=== PATIENT | female | born 1935 | race Caucasian/White ===

== ENCOUNTER 2019-02-14 17:08 | Emergency (ER) | payer OTHER ==
[~2019-02-14] VITALS: Ht 152.4 cm; Wt 47.6 kg
[2019-02-14 18:36] LABS: ABSOLUTE NEUTROPHILS 7.7 thou/uL (1.4-8.2); BASOPHILS 0.3 % (0.0-2.0); EOSINOPHILS 0.8 % (0.0-3.0); HEMATOCRIT 45.5 % (37.0-47.0); HEMOGLOBIN 15.1 gm/dL (12.0-15.0); LYMPHOCYTES 20.5 % (24.0-44.0); MCH 29.6 pg (26.0-34.0); MCHC 33.2 g/dL (28.0-37.0); MCV 89.2 fL (80.0-100.0); MONOCYTES 7.1 % (1.0-8.0); POLYS 71.3 % (36.0-66.0); RDW 14.8 % (10.5-14.5); WBC 10.8 thou/uL (4.0-11.0)
[2019-02-14 18:39] LABS: ANION GAP 8 mmol/L (7-16); BUN 12 mg/dL (7-18); CALCIUM 10.3 mg/dL (8.5-10.1); CHLORIDE 99 mmol/L (98-107); CO2 23 mmol/L (21-32); GLUCOSE 108 mg/dL (74-106); SODIUM 130 mmol/L (136-145)
[2019-02-14 18:40] LABS: POTASSIUM 4.1 mmol/L (3.5-5.1)
[2019-02-14 18:50] LABS: ALBUMIN 3.2 g/dL (3.4-5.0); SGOT 25 U/L (15-37); SGPT 15 U/L (30-65); TOTAL BILIRUBIN 0.5 mg/dL (<0.1-1.0); TOTAL PROTEIN 6.2 g/dL (6.4-8.2); TROPONIN-I <0.06 ng/mL (<0.06)
[2019-02-14 19:04] LABS: PLATELET COUNT 264 thou/uL (150-400)
[2019-02-14 21:03] LABS: URINE BILIRUBIN NEGATIVE (Negative); URINE BLOOD NEGATIVE (Negative); URINE CLARITY CLEAR; URINE COLOR YELLOW; URINE GLUCOSE-RANDOM* NEGATIVE (Negative); URINE KETONES NEGATIVE (Negative); URINE LEUKOCYTES-REFLEX NEGATIVE (Negative); URINE NITRITE-REFLEX NEGATIVE (Negative); URINE PROTEIN (DIPSTICK) NEGATIVE (Negative); URINE SPECIFIC GRAVITY 1.015 (1.005-1.035); URINE UROBILINOGEN 0.2 E.U./dl (0.2-1.0)
[2019-02-14] MEDS ORDERED: HYDROCHLOROTH12.5 M1 PO (22:16)
[2019-02-14] MEDS ORDERED: LISINOPRIL10 MG PO (22:16)
[2019-02-14] MEDS ORDERED: LEVOTHYROXINE100 MC1 PO (22:17)
[2019-02-15 03:13] VITALS: BP 158/91
--- NOTE | 2019-02-16 07:46 | EKG ---
[place] [address] [employer] [place] [address] ELECTROCARDIOGRAM REPORT Name: BRODERICK GARCIADRA Room #: DEP HERMES Boykin#: [id number] ������������������ Admission: 02/14/19 ������������������ Attend Phys: Discharge: 02/15/19 ������������������ Date of : 37 Report #: [id number] ����������������������������������������������������������������� [id number] THIS REPORT FOR: //name// [facility] ED Test Date: 2019-02-14 Test Time: 17:22:57 Pat Name: NAIMA GARCIA Department: Room: Gender: F Physician Intensivist: LACI : 1935 Requested By: Bailee Craft Order Number: [id number] MD: Cortes Palacio Measurements Intervals [place] Rate: 74 P: 52 MS: 178 QRS: 36 QRSD: 96 T: 91 QT: 427 QTc: 474 Interpretive Statements Sinus rhythm Poor R wave progression Nonspecific ST segment abnormality No previous ECG available for comparison Electronically Signed On 02-16-2019 7:45:56 CDT by Cortes Palacio [email or web address] ��������������������������������������������� <ELECTRONICALLY SIGNED> ���������������������������������������� By: Cortes Palacio MD, [facility] ��������������������������������������������� 02/16/19 0745 1722 1722 Cortes Palacio MD, FACC /EPI
== END 2019-02-15 03:26 | disposition home or self-care (01) ==
LOC: ER 17:08
PROVIDERS: Physician Assistant
DX: R53.1 Weakness (principal); R19.7 Diarrhea, unspecified; R10.13 Epigastric pain; Z90.49 Acquired absence of other specified parts of digestive tract

== ENCOUNTER 2019-04-30 21:34 | Inpatient (IN) | payer OTHER ==
[~2019-04-30] VITALS: Ht 162.6 cm; Wt 63.5 kg
--- NOTE | ~2019-04-30 | EMS ---
[address] [address] EMS Patient Care Report Name: BRODERICK GARCIADRA Room #: REG HERMES Boykin#: [id number] Admission: 04/30/19 Attend Phys: Discharge: Date of : 36 Report #: [id number] THIS REPORT FOR: //name// Report Transmitted: 04/30/2019 21:20 EMS Care Summary [facility] MED-ACT Incident [id number] @ 04/30/2019 20:41 Incident Location [address] [place] [address] Patient CHAYO GARCIA Female, 84 Years 1935 Patient Address [address] [place] [address] Patient History Other,Hypertension,Anxiety, Patient Allergies No known allergies, Patient Medications Lisinopril, Cyclobenzaprine, Hydrochlorothiazide (Hctz), Alprazolam, Metoprolol, Duloxetine, Chief Complaint "She's not responding to us." Disposition Transported No Lights/[place] Dispatch Reason Unconscious/Fainting Transported To [facility] Narrative CHART-D FORMAT CHIEF COMPLAINT [address] [address] EMS Patient Care Report Name: NAIMA GARCIA Room #: REG Ashutosh#: [id number] Admission: 04/30/19 Attend Phys: Discharge: Date of : 36 Report #: [id number] "She's not responding to us." HISTORY Medic 1154 responded emergent from quarters with Engine 54 and arrived [place] to find the patient, an 84 year old white female, with an altered mental state in the bedroom in the company of her grandson. The patient was not capable of answering any questions pertaining to the history of the present incident or reliably answer pertinent negative questions due to her altered mental state. The patient's family reported to EMS that the patient was last seen acting normally at noon the day before EMS contact (approx. 30 hours), that she recently had the flu (but had not seen the doctor for it), and that in addition to not responding to them her right eye is swollen shut. The patient's son stated, via phone through his grandson, that the patient possibly took too many of her "pain meds." The family stated that other individuals do live in the house with the patient, and that her son saw her earlier in the afternoon before going to work and calling his grandson to come check on the patient. The grandson reported calling 911 after finding his grandmother in her current condition. The past medical history, allergy, and medication information in this report was derived from a verbal history from the family. ASSESSMENT NOTE: Not in chronological order, and in addition to the assessments found elsewhere in this report. INITIAL CONTACT - The patient was appropriately responsive to painful stimuli, was wearing urine and feces soiled pajamas, had cool/clammy/pink skin, unlabored/irregular respirations, a strong/regular radial pulse, and a patent airway. A strong smell of old urine and fecal matter was pervasive throughout the patient's room, and stale urine permeated her clothing and bedding. EYE - The patient's right eye was swollen shut, and her left eye had mild swelling. No recent history of trauma was reported, and the swelling was similar in appearance to a burn blister. EMS noted that the patient had been lying in right lateral recumbent on an air mattress which was not fully inflated, which placed her head as the most dependent part of her body and possibly contributed to the swelling around the eye if the patient had been in the same position for an extended period of time STROKE SCREEN - Considered, but deferred to the receiving facility as the patient was not compliant with stroke screen commands. VITAL SIGNS - All sets were obtained by EMS via monitor and manual assessment. RENDERED TREATMENT NOTE: Not in chronological order, and in addition to the assessments found [facility] [address] [place] [address] EMS Patient Care Report Name: NAIMA GARCIA Room #: REG Sinan.#: [id number] Admission: 04/30/19 Attend Phys: Discharge: Date of : 36 Report #: [id number] elsewhere in this report. PRIOR AID - None noted/reported. CHANGES IN CONDITION - None noted/reported. TRANSPORT Non-emergent with no lights/sirens/opticom/riders. DESTINATION [facility], destination determined by family preference. FIELD IMPRESSION Altered mental state, possible sepsis. Initial Vitals @20:52GCS: 10,NV Suspected: false @21:32P: 69,R: 25,BP: 194/110,GCS: 10,EtCO2: 24,SpO2: 96,Revised Trauma: 11, @21:19P: 72,R: 27,BP: 185/108,GCS: 10,EtCO2: 23,SpO2: 98,Revised Trauma: 11, @20:59P: 78,R: 22,BP: 184/107,GCS: 10,SpO2: 96,Revised Trauma: 11,NV Suspected: false @21:09P: 72,R: 26,BP: 188/108,GCS: 10,EtCO2: 11,SpO2: 97,Revised Trauma: 11,NV Suspected: false @21:29P: 70,R: 26,BP: 189/112,GCS: 10,SpO2: 95,Revised Trauma: 11, @20:46P: 80,R: 14,BP: 175/104,GCS: 10,Temp: 97.2F,Glucose: 135,EtCO2: 18,SpO2: 97,Revised Trauma: 11,NV Suspected: false Assessments @20:47MENTAL:Confused,SKIN:Other,Pale,HEENT:Head/Face: Swelling,Eyes: Left Pupil: 4-mm,Eyes: Right: Other,Neck/Airway: No Abnormalities,LUNG SOUNDS:ABDOMEN:PELVIS//GI:EXTREMITIES:PULSE:NEURO: Impression Altered Mental Status Procedures @20:47ALS AssessmentResponse: UnchangedSucceeded@20:57Saline Lock 10cc (20 ga) Site: Antecubital-LeftResponse: UnchangedSucceeded@20:55StretcherResponse: Unchanged@20:5212-Lead ECGResponse: UnchangedSucceeded@20:47Oxygen FlowRate: 4 Device: CO2 Nasal Cannula Response: UnchangedSucceeded Timeline 20:41,Call Received 20:41,Psap Call [facility] [address] [place] [address] EMS Patient Care Report Name: NAIMA GARCIA Room #: ARMAAN LynchR.#: [id number] Admission: 04/30/19 Attend Phys: Discharge: Date of : 36 Report #: [id number] 20:41,Dispatched 20:42,En Route 20:45,On Scene 20:46,At Patient 20:46,BP: 175/104 M,PULSE: 80,RR: 14 R,SPO2: 97 Ox,ETCO2: 18 ,B,PAIN: ,GCS: 10, 20:47,ALS Assessment,Response: UnchangedSucceeded, 20:47,Oxygen FlowRate: 4 Device: CO2 Nasal Cannula Response: UnchangedSucceeded, 20:52,12-Lead ECG,Response: UnchangedSucceeded, 20:52,BP: / M,PULSE: ,RR: R,SPO2: Ox,ETCO2: ,BG: ,PAIN: ,GCS: 10, 20:55,Stretcher,Response: Unchanged 20:57,Saline Lock 10cc 20 ga Site: Antecubital-Left,Response: UnchangedSucceeded, 20:59,BP: 184/107 M,PULSE: 78,RR: 22 R,SPO2: 96 Ox,ETCO2: ,BG: ,PAIN: ,GCS: 10, 21:06,Depart Scene 21:09,BP: 188/108 M,PULSE: 72,RR: 26 R,SPO2: 97 Ox,ETCO2: 11 ,BG: ,PAIN: ,GCS: 10, 21:19,BP: 185/108 M,PULSE: 72,RR: 27 R,SPO2: 98 Ox,ETCO2: 23 ,BG: ,PAIN: ,GCS: 10, 21:29,BP: 189/112 M,PULSE: 70,RR: 26 R,SPO2: 95 Ox,ETCO2: ,BG: ,PAIN: ,GCS: 10, 21:31,At Destination 21:32,BP: 194/110 M,PULSE: 69,RR: 25 R,SPO2: 96 Ox,ETCO2: 24 ,BG: ,PAIN: ,GCS: 10, 21:41,Call Closed Disclaimer v1.1 Copyright 2019 [employer] This EMS Care Summary contains data elements from the applicable legal record (which may be displayed differently). It is designed to provide pertinent information for the following purposes: continuity of care, clinical quality, and state data reporting. The complete legal record is available to ED staff and administrators of the receiving hospital in [employer] Patient Tracker. All data is provided "as is."
[~2019-04-30 21:34] MED LIST: HYDROCHLOROTH12.5 M1 PO; LEVOTHYROXINE100 MC1 PO; LISINOPRIL10 MG PO
[2019-04-30 21:36] VITALS: BP 205/106
[2019-04-30] MEDS ORDERED: METOPROLOL (21:43)
[2019-04-30] MEDS ORDERED: FLEXERIL (21:44)
[2019-04-30] MEDS ORDERED: ALPRAZOLAM XR3 MG (21:44)
[2019-04-30] MEDS ORDERED: DULOXETINE HCL20 MG PO (21:44)
[2019-04-30] MEDS ORDERED: MICROZIDE12.5 MG (21:45)
[2019-04-30 22:02] LABS: URINE CLARITY CLOUDY; URINE COLOR YELLOW
[2019-04-30 22:03] LABS: URINE SPECIFIC GRAVITY 1.015 (1.005-1.035)
[2019-04-30 22:04] LABS: URINE BILIRUBIN NEGATIVE (Negative); URINE BLOOD 3+ (Negative); URINE GLUCOSE-RANDOM* NEGATIVE (Negative); URINE KETONES NEGATIVE (Negative); URINE NITRITE NEGATIVE (Negative); URINE PROTEIN (DIPSTICK) 3+ (Negative); URINE UROBILINOGEN 0.2 E.U./dl (0.2-1.0)
[2019-04-30 22:05] LABS: URINE LEUKOCYTES 3+ (Negative)
[2019-04-30 22:13] LABS: BACTERIA >30 Many /HPF (None Seen); CASTS None Seen /LPF (None Seen); MUCUS 0-3 Light strn/LPF (None Seen); SQUAMOUS 0-3 Few /LPF (0-3); URINE RBC >20 Many /HPF (0-2); URINE WBC >25 Many /HPF (0-5); WBC CLUMPS Packed (None Seen)
[2019-04-30 22:14] LABS: CRYSTALS None Seen /LPF (None Seen)
[2019-04-30 22:20] LABS: ABSOLUTE NEUTROPHILS 11.4 thou/uL (1.4-8.2); BASOPHILS 0.3 % (0.0-2.0); HEMATOCRIT 48.3 % (37.0-47.0); HEMOGLOBIN 15.4 gm/dL (12.0-15.0); LYMPHOCYTES 11.3 % (24.0-44.0); MCH 30.1 pg (26.0-34.0); MCHC 31.9 g/dL (28.0-37.0); MCV 94.4 fL (80.0-100.0); MONOCYTES 6.8 % (1.0-8.0); PLATELET COUNT 235 thou/uL (150-400); POLYS 81.6 % (36.0-66.0); RBC 5.12 mil/uL (4.20-5.00); RDW 14.3 % (10.5-14.5)
[2019-04-30 22:22] LABS: CALCIUM 7.7 mg/dL (8.5-10.1); CREATININE 1.1 mg/dL (0.6-1.0); POTASSIUM 3.5 mmol/L (3.5-5.1)
[2019-04-30 22:31] LABS: BE(vivo) -5.7 mmol/L (-2 to +3); HCO3 18.1 mmol/L (22.0-26.0); PCO2 31.2 mmHg (35.0-45.0); PO2 93.5 mmHg (80.0-100.0); pH 7.381 (7.360-7.450); sO2 97.1 % (92.0-98.0)
[2019-04-30 22:32] LABS: ALBUMIN 2.3 g/dL (3.4-5.0); TOTAL BILIRUBIN 0.3 mg/dL (<0.1-1.0); TOTAL PROTEIN 4.9 g/dL (6.4-8.2); TROPONIN-I 0.17 ng/mL (<0.06)
[2019-05-01] VITALS (11 sets, daily range): BP systolic 142–207; BP diastolic 66–107
--- NOTE | 2019-05-01 02:45 | NUR ---
Patient was able to take oral Metoprolol with small sip for water without difficulty.
--- NOTE | 2019-05-01 04:57 | NUR ---
Patient more awake, able to reposition self in bed. Oriented to person and speech clearer. Unable to recall incident that brought her to ED. Cannot remember medications. Son to bring in medication for verification.
[2019-05-01 06:05] LABS: URINE BILIRUBIN NEGATIVE (Negative); URINE BLOOD TRACE (Negative); URINE CLARITY CLOUDY; URINE COLOR YELLOW; URINE GLUCOSE-RANDOM* NEGATIVE (Negative); URINE KETONES NEGATIVE (Negative); URINE PROTEIN (DIPSTICK) NEGATIVE (Negative); URINE SPECIFIC GRAVITY 1.025 (1.005-1.035); URINE UROBILINOGEN 0.2 E.U./dl (0.2-1.0)
[2019-05-01 06:20] LABS: URINE LEUKOCYTES-REFLEX 2+ (Negative); URINE NITRITE-REFLEX POSITIVE (Negative)
[2019-05-01 06:31] LABS: BACTERIA-REFLEX >30 Many /HPF (None Seen); CRYSTALS None Seen /LPF (None Seen); HYALINE CASTS 0-3 Few /LPF (None Seen); SQUAMOUS None Seen /LPF (0-3); URINE RBC 0-2 Rare /HPF (0-2); URINE WBC-REFLEX >25 Many /HPF (0-5)
[2019-05-01 09:45] LABS: HEMATOCRIT 45.7 % (37.0-47.0); HEMOGLOBIN 14.9 gm/dL (12.0-15.0); MCH 30.6 pg (26.0-34.0); MCHC 32.7 g/dL (28.0-37.0); MCV 93.5 fL (80.0-100.0); RBC 4.89 mil/uL (4.20-5.00); RDW 14.2 % (10.5-14.5); WBC 11.4 thou/uL (4.0-11.0)
[2019-05-01 10:03] LABS: CALCIUM 9.3 mg/dL (8.5-10.1); CREATININE 1.1 mg/dL (0.6-1.0); POTASSIUM 3.3 mmol/L (3.5-5.1); TROPONIN-I 0.16 ng/mL (<0.06)
--- NOTE | 2019-05-01 10:20 | EKG ---
[address] [place] [address] ELECTROCARDIOGRAM REPORT Name: NAIMA GARCIA Room #: 359-P ADM IN M.R.#: [id number] Admission: 04/30/19 Attend Phys: Ray Perry Discharge: Date of : 36 Report #: [id number] THIS REPORT FOR: //name// [facility] ED Test Date: 2019-04-30 Test Time: 23:05:16 Pat Name: NAIMA GARCIA Department: Room: 359 Gender: F Tool Analyst: BETTY : 1935 Requested By: Johnson Cho Order Number: [id number] MD: Marin Faria Measurements Intervals [place] Rate: 67 P: 42 DE: 174 QRS: 33 QRSD: 94 T: 58 QT: 488 QTc: 516 Interpretive Statements Sinus rhythm Borderline T wave abnormalities Prolonged QT interval Compared to ECG 02/14/2019 17:22:57 T-wave abnormality now present Prolonged QT interval now present Poor R-wave progression no longer present ST (T wave) deviation no longer present Electronically Signed On 05-01-2019 10:20:22 CDT by Marin Faria [email or web address] <ELECTRONICALLY SIGNED> By: Marin Faria MD 05/01/19 1020 2305 Marin Faria MD /EPI
--- NOTE | 2019-05-01 10:20 | EKG ---
[address] [place] [address] ELECTROCARDIOGRAM REPORT Name: NAIMA GARCIA Room #: 359-P ADM IN M.R.#: [id number] Admission: 04/30/19 Attend Phys: Ray Perry Discharge: Date of : 36 Report #: [id number] THIS REPORT FOR: //name// [facility] ED Test Date: 2019-04-30 Test Time: 21:48:22 Pat Name: NAIMA GARCIA Department: Room: 359 Gender: F Managing Director: BOBBI : 1935 Requested By: Johnson Cho Order Number: [id number] MD: Marin Faria Measurements Intervals [place] Rate: 67 P: 50 MI: 161 QRS: 46 QRSD: 92 T: 70 QT: 475 QTc: 502 Interpretive Statements Sinus rhythm Borderline T wave abnormalities Prolonged QT interval Compared to ECG 02/14/2019 17:22:57 T-wave abnormality now present Prolonged QT interval now present Poor R-wave progression no longer present ST (T wave) deviation no longer present Electronically Signed On 05-01-2019 10:20:04 CDT by Marin Faria [email or web address] <ELECTRONICALLY SIGNED> By: Marin Faria MD 05/01/19 1020 2148 2148 Marin Faria MD /EPI
[2019-05-01 10:29] LABS: TSH 1.742 uIU/mL (0.358-3.740)
--- NOTE | 2019-05-01 15:56 | NUR ---
ASSUMED CARE AROUND 191. RECEIVED ALERT AND AWAKE. THROUGHOUT THE DAY, PT'S LOC GOTTEN BETTER. ST EVAL COMPLETED WITH NEW DIET ORDER. HTN AND LOW K+ ADDRESSED TO WITH NEW ORDERS.NO S/S ACUTE DISTRESS NOTED OR REPORTED AT THIS TIME. WILL CONT TO MOMITOR FOR ANY CHANGES IN CONDITION.
--- NOTE | 2019-05-02 01:52 | NUR ---
PATIENT AOX3 MAKES NEEDS KNOWN. PATIENT CONTINENT THIS SHIFT PERICARE AND BARRIER CREAM APPLIED NEEDED. PATIENT DENIED PAIN OR DISCOMFORT. PATIENT USING A BED COMMODE OR BED KAHN THIS SHIFT. PATIENT VOIDING WELL URINE IS YELLOW IN COLOR NO ODOR. PATIENT IN BED ASLEEP AT THIS TIME BREATHING REGULAR AND UNLABOURED.
[2019-05-02 03:50] VITALS: BP 175/86
[2019-05-02 05:43] LABS: MCH 30.9 pg (26.0-34.0); MCHC 33.3 g/dL (28.0-37.0); MCV 92.7 fL (80.0-100.0); RBC 4.21 mil/uL (4.20-5.00); RDW 14.3 % (10.5-14.5); WBC 8.3 thou/uL (4.0-11.0)
[2019-05-02 06:03] LABS: CALCIUM 8.8 mg/dL (8.5-10.1); CREATININE 0.9 mg/dL (0.6-1.0); TROPONIN-I 0.1 ng/mL (<0.06)
[2019-05-02 07:50] VITALS: BP 172/75
[2019-05-02 10:25] VITALS: BP 158/79
--- NOTE | 2019-05-02 11:01 | NUR ---
Pt is continue to c/o being nausea. Not relief by Zofran. Call placed to Dr. Perry; order receives. Dysurina, unale to void after multiple attempts. Bladder scan obtain and it was> 400 cc per scanner. Notified ; order to place lester to DD and place her on protocol. Will continue to monitor.
[2019-05-02 16:09] VITALS: BP 168/81
--- NOTE | 2019-05-02 19:00 | NUR ---
Pt report she is feeling better this evening. Nausea is comopletely resolved. Still having very poor appitite. Report hand off to ALFRED Rn.
[2019-05-02 20:34] VITALS: BP 155/82
[2019-05-03 04:15] VITALS: BP 162/85
[2019-05-03 05:41] LABS: HEMATOCRIT 39.2 % (37.0-47.0); HEMOGLOBIN 12.9 gm/dL (12.0-15.0); MCH 30.6 pg (26.0-34.0); MCV 92.7 fL (80.0-100.0); RBC 4.23 mil/uL (4.20-5.00); RDW 14.7 % (10.5-14.5); WBC 9.1 thou/uL (4.0-11.0)
[2019-05-03 05:46] LABS: CALCIUM 8.9 mg/dL (8.5-10.1); CREATININE 0.7 mg/dL (0.6-1.0); POTASSIUM 3.2 mmol/L (3.5-5.1)
[2019-05-03 05:48] VITALS: BP 161/84
--- NOTE | 2019-05-03 05:49 | NUR ---
HEART RATE IN THE 150'S. HAVING A HEADACHE AND HER FACE FLUSHED. SHE IS AWARE OF THE PALPATIONS.
[2019-05-03 07:24] VITALS: BP 174/91
--- NOTE | 2019-05-03 07:54 | HC ---
[facility] [place] [address] CONSULTATION Name: NAIMA GARCIA Room #: 359-P [facility] IN M.R.#: [id number] Admission: 04/30/19 Attend Phys: Ray Perry Discharge: Date of : 36 Report #: [id number] THIS REPORT FOR: //name// CC: CONSTANTINO physician/PCP Ray Perry DATE OF SERVICE: 05/01/2019 CARDIOLOGY CONSULTATOIN INDICATION: Chest pain. HISTORY OF PRESENT ILLNESS: This is an 84-year-old female with a history of hypertension, anxiety, hypothyroidism, presenting with mental status change. The patient lives with her son, who works in the evening. The patient initially presented with confusion, but is more alert today. The patient is able to answer questions, knows she is in the hospital. The patient states that she ambulates with either a cane or walker at home, secondary to gait instability. For the past week, she reports having substernal chest discomfort, occurring at rest and with exertion. It is not alleviated with palpation over the area or deep inspiration. It comes and goes, not exacerbated with walking. She cannot recall the events of yesterday. She does report that her eating habits are very poor, has no appetite. There is no history of fever or chills. ALLERGIES: PENICILLIN. MEDICATIONS: Include lisinopril 10 mg, hydrochlorothiazide 12.5, Synthroid, duloxetine, alprazolam and Flexeril. SOCIAL HISTORY: Denies tobacco use. FAMILY HISTORY: Negative for premature CAD. REVIEW OF SYSTEMS: A full 10-point review of systems performed. Only the pertinent positives and negatives are described in the HPI. PHYSICAL EXAMINATION: VITAL SIGNS: Initial blood pressure was 200/110, heart rate of 70 beats per minute. GENERAL APPEARANCE: An elderly appearing female in no acute distress. HEENT: Normocephalic, atraumatic. Oral mucosa is moist. NECK: Supple. LUNGS: Clear to auscultation. CARDIAC: Regular rate and rhythm, S1, S2 positive. ABDOMEN: Soft, nontender. EXTREMITIES: No cyanosis, no edema. [facility] [address] [place] [address] CONSULTATION Name: NAIMA GARCIA Room #: 359-P ADM IN M.R.#: [id number] Admission: 04/30/19 Attend Phys: Ray Perry Discharge: Date of : 36 Report #: [id number] NEUROLOGIC: Awake and oriented to hospital only. ECG reveals sinus rhythm, nonspecific ST segment abnormalities and prolonged QT interval. LABORATORY VALUES: Troponin peak is 0.17, calcium is 7.7, creatinine is 1.1. White count is 14.0, hemoglobin 15.4. Chest x-ray reveals right basilar infiltrate. ASSESSMENT AND PLAN: 1. Chest pain with positive troponin, the EKG does not show any acute ST segment changes. The etiology for the minimal troponin elevation is unclear. Once her mental status is back to baseline, we would proceed with noninvasive stress testing and echocardiogram. Start aspirin therapy. 2. Hypertensive urgency, resume lisinopril. May need additional medications. Hold on the diuretic for now. 3. Pneumonia, continue antibiotics, check cultures. Consider speech and swallow evaluation to rule out aspiration. 4. Urinary tract infection, on antibiotics. 5. Mental status change/encephalopathy, etiology unclear. She appears more lucid today, able to respond to questions. <ELECTRONICALLY SIGNED> By: Marin Faria MD 05/03/19 0754 1629 0917 Marin Faria MD /nt
--- NOTE | 2019-05-03 10:12 | NUR ---
Pt in CV holding 11 waiting to do the rest of her nuclear med study. She is calling out c/o extreme back pain. she is agitated. Checked eMAR. She has tylenol ordered q4h. last dose 0557. Given 650 mg acetaminophen PO or back pain of 04/29.
--- NOTE | 2019-05-03 10:18 | NUR ---
PT C/O INCREASED CHRONIC BACK PAIN. PT POSITIONED TO BE COMFORTABLE POSSIBLE, MEDS GIVEN BY SECONDARY RN. PRIMARY RN AWARE OF PAIN COMPLAINTS AND IS CONTACTING MD FOR ADDITIONAL PAIN MANAGMENT.
[2019-05-03] MEDS ORDERED: OXYCODONE HCL15 MG PO (10:25)
--- NOTE | 2019-05-03 10:33 | NUR ---
50 MCG OF FENTAYL GIVEN PER MAR, UNABLE TO SCAN.
--- NOTE | 2019-05-03 10:48 | NUR ---
PT GIVEN 15 MG OXYCODONE IR, PER SEP. UNABLE TO SCAN. 04/29 BACK PAIN.
[2019-05-03 12:23] VITALS: BP 144/83
--- NOTE | 2019-05-03 12:29 | NUR ---
INITIAL ASSESSMENT: Received consult to assess pt's living situation. DANIEL reviewed chart and spoke with nursing and attending physician. Pt was admitted from home due to AMS/UTI/pneumonia. Pt had stress test earlier today. DANIEL met with pt at bedside. Introduced role of SW. Pt is alert/orientated x 4. Pt reports she lives at home with her son. Prior to admission, pt was independent with ADLs. There are a couple steps to enter and 5 steps inside up to her bedroom. Pt has a walker and states she is able to navigate the steps inside. There is a hand rail. No hx of HH services or SNF/Rehab placement. Pt is agreeable with having HH services. Pt does not want to go to post-acute care. Pt states she has no concerns returning home. Pt's PCP is Dr. Brooke Louise in [place]. DANIEL discussed options for HH providers. No preference voiced. DANIEL contacted [facility] lia[facility], who will check pt's insurance. DANIEL is following to assist as needed with discharge planning.
--- NOTE | 2019-05-03 13:03 | NUR ---
Patient to likely dc in 1 to 2 days. DP sent hh referral to [facility] dp will follow up to make sure they received referral.
--- NOTE | 2019-05-03 14:00 | 2DMMODE ---
[facility] [address] [place] [address] 2 D/M-MODE ECHOCARDIOGRAM Name: BRODERICK GARCIADRA Room #: 359-P ADM IN M.R.#: [id number] Admission: 04/30/19 Attend Phys: Ray Starks Discharge: Date of : 36 Report #: [id number] THIS REPORT FOR: //name// APPROVED REPORT Study performed: 05/03/2019 13:18:14 EXAM: Comprehensive 2D, Doppler, and color-flow Echocardiogram Patient Location: Bedside Room #: 359 Status: routine BSA: 1.68 HR: 94 bpm BP: 174/91 mmHg Rhythm: NSR Other Information Study Quality: Good Indications Chest Pain HTN 2D Dimensions RVDd: 31.68 mm IVSd: 12.00 (7-11mm) LVOT Diam: 20.06 (18-24mm) LVDd: 40.39 mm PWd: 12.00 (7-11mm) Ascending Ao: 34.88 (22-36mm) LVDs: 23.23 (25-40mm) Aortic Root: 36.40 mm Volumes Left Atrial Volume (Systole) Single Plane 4CH: 54.34 mL Single Plane 2CH: 49.00 mL LA ESV Index: 34.00 mL/m2 Aortic Valve AoV Peak Orlando.: 1.93 m/s AO Peak Gr.: 14.92 mmHg LVOT Max P.90 mmHg LVOT Max V: 1.57 m/s THANH Vmax: 2.57 cm2 Mitral Valve E/A Ratio: 0.7 MV Decel. Time: 232.10 ms [facility] [address] [place] [address] 2 D/M-MODE ECHOCARDIOGRAM Name: NAIMA GARCIA Room #: 359-P [facility] IN [facility]#: [id number] Admission: 04/30/19 Attend Phys: Ray Gomes Sep Discharge: Date of : 36 Report #: [id number] MV E Max Orlando.: 0.87 m/s MV A Orlando.: 1.27 m/s MV PHT: 67.31 ms IVRT: 72.66 ms Pulmonary Valve PV Peak Orlando.: 1.16 m/s PV Peak Gr.: 5.41 mmHg Pulmonary Vein P Vein S: 0.96 m/s P Vein D: 0.37 m/s P Vein S/D Ratio: 2.59 Tricuspid Valve TR Peak Orlando.: 2.82 m/s RAP Estimate: 5.00 mmHg TR Peak Gr.: 32.00 mmHg PA Pressure: 37.00 mmHg Left Ventricle The left ventricle is normal size. There is normal LV segmental wall motion. Mild concentric left ventricular hypertrophy. Left ventricular systolic function is normal. LVEF is 65-70%. Mild diastolic dysfunction is present (impaired relaxation pattern). Right Ventricle The right ventricle is normal size. The right ventricular systolic function is normal. Atria Left atrium is mildly dilated. The right atrium size is normal. Aortic Valve The aortic valve is normal in structure. No aortic regurgitation is present. There is no aortic valvular stenosis. Mitral Valve The mitral valve is normal in structure. Mild to moderate mitral regurgitation. Tricuspid Valve The tricuspid valve is normal in structure. Trace tricuspid regurgitation. Estimated PAP is 35-40mmHg. Pulmonic Valve [facility] [address] [place] [address] 2 D/M-MODE ECHOCARDIOGRAM Name: NAIMA GARCIA Room #: 359-[facility] IN .R.#: [id number] Admission: 04/30/19 Attend Phys: Ray Starks Discharge: Date of : 36 Report #: [id number] The pulmonary valve is normal in structure. Trace pulmonic regurgitation. Great Vessels The aortic root is normal in size. The ascending aorta is normal in size. IVC is normal in size and collapses >50% with inspiration. Pericardium There is no pericardial effusion. <Conclusion> The left ventricle is normal size. Mild concentric left ventricular hypertrophy. Left ventricular systolic function is normal. Mild diastolic dysfunction is present (impaired relaxation pattern). The right ventricle is normal size. Left atrium is mildly dilated. The aortic valve is normal in structure. Mild to moderate mitral regurgitation. Trace tricuspid regurgitation. Estimated PAP is 35-40mmHg. <ELECTRONICALLY SIGNED> By: Marin Faria MD 05/03/191399 99 99 Marin Faria MD /INF
--- NOTE | 2019-05-03 15:08 | NUR ---
folate and vitamin D deficiency, needs supplementation
[2019-05-03 15:52] VITALS: BP 156/86
[2019-05-03 19:39] VITALS: BP 134/75
[2019-05-04 05:00] VITALS: BP 155/81
[2019-05-04 05:39] LABS: HEMATOCRIT 33.1 % (37.0-47.0); MCH 30.8 pg (26.0-34.0); MCHC 32.9 g/dL (28.0-37.0); MCV 93.8 fL (80.0-100.0); RBC 3.53 mil/uL (4.20-5.00); RDW 14.2 % (10.5-14.5); WBC 6.9 thou/uL (4.0-11.0)
[2019-05-04 05:41] LABS: HEMOGLOBIN 10.9 gm/dL (12.0-15.0)
[2019-05-04 05:51] LABS: CALCIUM 8.9 mg/dL (8.5-10.1); CREATININE 0.8 mg/dL (0.6-1.0); POTASSIUM 3.2 mmol/L (3.5-5.1)
--- NOTE | 2019-05-04 05:54 | NUR ---
PT MOVES BACK AND FORTH FROM BED TO CHAIR DUE TO PAIN ASSOCIATED TO PT'S BACK. PT UP X1 WITH GAITBELT AND WALKER. FOLLOWING POC WITH IVF AND ORAL MEDICATIONS. PT HR WILL GET UP TO 150 BPM. HAD PT VAGAL AND HR DROPPED BACK DOWN INTO THE 90'S. WILL CONTINUE TO MONITOR AND ASSESS. PT HAS DIMAS IN THAT IS HAVING GOOD OUTPUT. PT ALSO STATED DURING ASSESSMENT THAT SHE WAS ALLERGIC TO PENICILLIN. DOCUMENTED IN MAR THOSE FINDINGS. PT HAS COMPLAINTS OF BACK PAIN, TYLENOL AND PRN OXY GIVEN WITH GOOD RESULTS. HOURLY ROUNDING.
[2019-05-04 07:41] VITALS: BP 132/78
--- NOTE | 2019-05-04 10:31 | NUR ---
PATIENT'S HEART RHYTHM AND RATE CHANGED THIS MORNING. PHYSICIAN WAS ON FLOOR AND MADE AWARE OF AFIB. PHYSICIAN ORDERED STAT EKG AND NURSE PAGED WARP DRESSER ABOUT FURTHER TREATMENT.
[2019-05-04 11:48] VITALS: BP 118/81
--- NOTE | 2019-05-04 13:22 | NUR ---
PATIENT WAS IN GOOD SPIRITS AT THE BEGINING OF THE DAY. SHE MADE A GOAL TO GET UP AND WALK THE HALLS. PATIENT LATER BECAME TEARFUL SHE EXPRESSED DISGUST IN HERSELF FOR HEALTHCARE STAFF NEEDING TO HELP HER ELIMINATE. STAFF PROVIDED THERAPEUTIC COMMUNICATION.
--- NOTE | 2019-05-04 14:11 | EKG ---
[address] [address] ELECTROCARDIOGRAM REPORT Name: NAIMA GARCIA Room #: 359-P ADM IN M.R.#: [id number] Admission: 04/30/19 Attend Phys: Ray Perry Discharge: Date of : 36 Report #: [id number] THIS REPORT FOR: //name// [facility] Test Date: 2019-05-04 Test Time: 11:04:07 Pat Name: NAIMA GARCIA Department: Room: 359 P Gender: F Billet Worker: Melodie MARX : 1935 Requested By: Tam Ni Order Number: [id number] MD: Chino Webster Measurements Intervals [place] Rate: 152 P: 20 IA: 180 QRS: 11 QRSD: 90 T: 30 QT: 335 QTc: 533 Interpretive Statements Supraventricular tachycardia Repolarization abnormality, prob rate related Compared to ECG 04/30/2019 23:05:16 Early repolarization now present Sinus rhythm no longer present T-wave abnormality no longer present Electronically Signed On 05-04-2019 14:11:41 CDT by Chino Webster [email or web address] <ELECTRONICALLY SIGNED> By: Chino Webster MD 05/04/19 1411 1104 1104 Chino Webster MD /EPI
--- NOTE | 2019-05-04 14:38 | NUR ---
I have reviewed the student's documentation.
[2019-05-04 17:00] VITALS: BP 154/82
--- NOTE | 2019-05-04 17:09 | NUR ---
ASSUMED CARE OF PATIENT AT 0700. PATIENT MOSTLY STABLE TODAY BUT RHYTHM POSSIBLE GOING INTO AFIB WITH RVR. PHYSICIAN AND CARDIOLOGY PAGED WITH STAT EKG SHOWING SVT. PATIENT PLACED ON CARDIZEM DRIP UNTIL CARDIOLOGY CAME UP TO SEE PATIENT. PATIENT PLACED ON METOPROLOL ONCE IT ARRIVES FROM PHARMACY AND CARDIZEM DRIP WILL BE OFF WHEN GIVEN. PATIENT CONTINUED TO HAVE DIARRHEA TODAY DESPITE IMMODIUM. PATIENT CONTINUES TO HAVE PAIN THAT IS CONTROLLED WITH CURRENT MEDICATION.
--- NOTE | 2019-05-04 17:29 | NUR ---
SW reviewed chart and spoke with nursing and attending physician. Pt is progressing towards goals for discharge. Discharge home is anticipated for tomorrow. [facility] is able to provide HH services for pt. SW met with pt at bedside to discuss discharge plan. Pt is aware and agreeable and is unsure if she needs HH or not. SW to follow up with pt tomorrow. SW is following to assist as needed with discharge planning.
[2019-05-04 19:57] VITALS: BP 138/70
[2019-05-04 22:04] LABS: MAGNESIUM 1.8 mg/dL (1.8-2.4); POTASSIUM 3.6 mmol/L (3.5-5.1)
--- NOTE | 2019-05-04 22:53 | NUR ---
DURING ASSESSMENT PT BASELINE MENTATION HAS CHANGED FROM YESTERDAY. AT 2230 PT IS HAVING MORE CONFUSION A/0X1, ANXIETY IS HIGH WITH PT BEING FIDGETY, BEING IMPULSIVE WHILE TRYING TO GET OUT OF BED, AND PULLING AT THE TELE LEADS, DIMAS, AND IV LINES. TRIED TO REDIRECT AND REFOCUS AND AGITATION ONLY INCREASED. FOR PT SAFETY, QUALITY ASSURANCE PROJECT MANAGER WAS CALLED AND ORDERS RECEIVED FOR SOFT RESTRAINTS AND ONE TIME DOSE OF HALIDOL. PT PLACED IN RESTRAINTS, APPLE TURNER NOTIFIED, CARE PLAN UPDATED AND INTERVENTIONS ADDED. WILL CONTINUE TO MONITOR AND DOCUMENT.
[2019-05-05 04:16] VITALS: BP 161/97
[2019-05-05 11:38] VITALS: BP 129/76
--- NOTE | 2019-05-05 12:29 | NUR ---
SW reviewed chart and spoke with nursing and attending physician. Pt is progressing towards goals for discharge. Pt was placed in bilateral wrist restraints during bag shop worker due to agitation and pulling at lines. Restraints were removed this morning. Plan is for pt to discharge home with [facility]. SW notified [facility] liaison. Contact info for [facility] placed in pt's discharge summary. DANIEL is following to assist as needed with discharge planning.
[2019-05-05 12:31] VITALS: BP 129/76
[2019-05-05 14:24] VITALS: BP 145/79
--- NOTE | 2019-05-05 18:33 | NUR ---
PT ALERT AND ORIENTED TIMES TWO. CONFUSED FOR MOST OF THE SHIFT IMPLUSIVE BUT EASILY REDIRECTABLE. VSS, 97%RA, SR ON TELE, IVF INFUSING PER ORDER. PT C/O BACK PAIN PRN MEDICATIONS GIVEN WITH SOME RELIEF. PT UP WITH STANDBY ASSIST. PT WORKED WELL WITH PT/OT TODAY. WILL CONTINUE TO MONITOR.
[2019-05-05 20:04] VITALS: BP 171/79
[2019-05-06 00:02] VITALS: BP 171/89
[2019-05-06 04:51] VITALS: BP 158/81
[2019-05-06 05:33] LABS: CALCIUM 9.4 mg/dL (8.5-10.1); CREATININE 0.6 mg/dL (0.6-1.0); POTASSIUM 3.9 mmol/L (3.5-5.1)
[2019-05-06 05:43] LABS: HEMATOCRIT 38.2 % (37.0-47.0); HEMOGLOBIN 12.8 gm/dL (12.0-15.0); MCH 31.5 pg (26.0-34.0); MCHC 33.6 g/dL (28.0-37.0); MCV 93.8 fL (80.0-100.0); RBC 4.08 mil/uL (4.20-5.00); RDW 14.4 % (10.5-14.5); WBC 8.2 thou/uL (4.0-11.0)
--- NOTE | 2019-05-06 05:44 | NUR ---
ASSUMED CARE AT 1900. PT HAS SLEPT MUCH OF THE NIGHT. WOKE UP DURING SHIFT ASSESSMENT, ALERT AND ORIENTED x3; REPORTS KNOWING SHE "WAS VERY CONFUSED LAST NIGHT, BUT I DON'T KNOW WHY." HAS NOT BEEN IMPULSIVE OVERNIGHT, HAS NOT PULLED AT ANY LINES OR ATTEMPTED TO GET OUT OF BED. HR HAS BEEN REGULAR SR, 80-90, OCCASIONALLY UP TO LOW 100'S, NO SVT OVERNIGHT. IV FLUIDS INFUSING; DIMAS DRAINING DARK YELLOW URINE. NO OTHER CONCERNS, WILL CONTINUE TO MONITOR.
[2019-05-06 08:23] VITALS: BP 158/82
[2019-05-06 11:25] VITALS: BP 144/82
[2019-05-06 15:36] VITALS: BP 152/71
[2019-05-06 20:05] VITALS: BP 126/72
[2019-05-07 04:50] VITALS: BP 122/79
[2019-05-07 05:52] LABS: MCH 31.2 pg (26.0-34.0); MCV 94.5 fL (80.0-100.0); RBC 3.17 mil/uL (4.20-5.00); RDW 14.3 % (10.5-14.5); WBC 5.8 thou/uL (4.0-11.0)
[2019-05-07 05:54] LABS: CALCIUM 9.2 mg/dL (8.5-10.1); CREATININE 0.8 mg/dL (0.6-1.0); MAGNESIUM 1.4 mg/dL (1.8-2.4); POTASSIUM 4.1 mmol/L (3.5-5.1)
[2019-05-07 05:59] LABS: HEMOGLOBIN 9.9 gm/dL (12.0-15.0)
--- NOTE | 2019-05-07 06:09 | NUR ---
PT PLATELET COUNT ON 05/06 WAS 62, ALL HEPARIN WAS HELD. AM LABS ON 05/07 PLT COUNT CAME BACK 32. CALLED SLOTS MANAGER SALOMON TO DISCUSS THIS AGAIN, RECEIVED ORDERS FOR HEPARIN INDUCED ANTIBODY. FURTHER ORDERS STATE IF IT COMES BACK POSITIVE CONSULT HEMO. PT IS STILL SOMEWHAT IMPULSIVE AND FORGETS SHE IS ATTACHED TO AN IV AND DIMAS WHILE ATTEMPTING TO GET OUT OF BED. FALL PRECAUTIONS IN PLACE AND BED ALARM IS A MUST. FOLLOWING POC WITH IVF AND IVPB. HOURLY ROUNDING.
[2019-05-07 07:20] VITALS: BP 142/84
[2019-05-07 11:53] VITALS: BP 142/75
--- NOTE | 2019-05-07 13:14 | NUR ---
Nutrition: Seen for follow up. Currently ordered on a mechanically altered- chopped diet (upgraded from ground). ST still continuing to assess. Now that mentation dramatically improved, pt reports eating remarkably well. Averaging 81% of meals per the last 7 recordings and consumed 100% of 3 oral nutrition supplements yesterday. Hernandes Ensure Clear ordered BID, will increase to TID with each tray as pt reports actually drinking up to 4/day which would supply an additional 960 kcals, 32 g protein/day. Voices being told she could change to a regular diet? No new diet order in computer. No new notes from ST. RD left voicemail with ST dept to clarify diet as pt really wanting a cheeseburger tonight. On the electrolyte protocol; low Mag of 1.4. Also on vitamin D and folic acid supplementation for deficiencies. With high success rate on nutrition supplements and high PO average, change to low risk.
[2019-05-07 15:03] VITALS: BP 128/76
--- NOTE | 2019-05-07 18:23 | NUR ---
QUIET UNEVENTFUL DAY FOR THIS PLEASANT LADY. ALERT AND ORIENTED X 4. CALLED APPROPRIATELY FOR ASSISTANCE UP. FALL PRECAUTIONS IN PLACE. MAIN COMPLAINT BACK, RT HIP AND HEAD PAIN. OXYCODONE GIVEN WITH SLIGHT RELIEF. TYLENOL HELPFUL FOR HEADACHE. STARTED ON MIRALAX, SENNA, AND BISCODYL SUPPOSITORY FOR CONSTIPATION. NO RESULT OF YET. SAT UP IN CHAIR THIS AFTERNOON FOR SUPPER. TOLERATING DIET WELL. FALL PRECAUTIONS IN PLACE.
[2019-05-07 19:58] VITALS: BP 137/72
[2019-05-07 23:55] VITALS: BP 139/80
[2019-05-08 03:58] VITALS: BP 169/84
[2019-05-08 04:54] LABS: HEMATOCRIT 33.8 % (37.0-47.0); HEMOGLOBIN 11.1 gm/dL (12.0-15.0); MCH 30.9 pg (26.0-34.0); MCHC 32.7 g/dL (28.0-37.0); MCV 94.4 fL (80.0-100.0); RBC 3.58 mil/uL (4.20-5.00); RDW 14.7 % (10.5-14.5); WBC 7.7 thou/uL (4.0-11.0)
[2019-05-08 05:03] LABS: CALCIUM 9.2 mg/dL (8.5-10.1); CREATININE 0.9 mg/dL (0.6-1.0)
[2019-05-08 07:23] VITALS: BP 140/74
--- NOTE | 2019-05-08 08:53 | NUR ---
PT RESTING QUIETLY IN ROOM THRU THE NOC, PRN PAIN MEDS GIVEN Q 6 HRS FOR C/O BACK AND HIP PAIN, DIMAS WITH YELLOW URINE OUT PUT, FLUIDS INFUSING IN L FA, PRN HYDRALIZINE GIVEN FOR AM ELEVATED BP, OTHER PELAEZ VSS, REPORT GIVEN TO NEXT SHIFT TO CON'T WITH PPOC.
[2019-05-08 11:23] VITALS: BP 126/68
--- NOTE | 2019-05-08 12:15 | HC ---
[facility] [place] [address] CONSULTATION Name: NAIMA GARCIA Room #: 359-P ADM IN M.R.#: [id number] Admission: 04/30/19 Attend Phys: Ray Perry Discharge: Date of : 37 Report #: [id number] THIS REPORT FOR: //name// CC: [facility] physician/PCP Ray Perry DATE OF SERVICE: 05/06/2019 INFECTIOUS DISEASE CONSULTATION REASON FOR CONSULTATION: Evaluate bacteremia. HISTORY OF PRESENT ILLNESS: An 84-year-old with history of hypertension, anxiety, and hypothyroidism. She presents to the Emergency Room on 04/30/2019 with acute change in mental status. She lives with her son. Noticed over the past day that she was not thinking clearly. On presentation, she was incoherent. She was too weak to stand. She was covered in urine and feces. She had been having issues with lower abdominal discomfort along with diarrhea. She states that she gets these diarrhea episodes for several days a month, unclear how much workup she has had. I do note that she has had a CT of her abdomen in January of this year, which showed some thickening of the descending colon. No history of inflammatory bowel disease. No history of diverticulitis. No history of colon cancer. After admission, she was placed on azithromycin and ceftriaxone. She did have evidence of a right lower lobe pulmonary infiltrate on chest x-ray. She has had no cough or sputum production. She has indwelling Bond catheter placed. Urinalysis did show pyuria and bacteriuria, although urine culture was no growth. She did have blood cultures drawn, one of which is showing a gram-negative bacillus. The other one is showing gram-positive bacillus, growth of bacillus species, non-anthrax. She has had episodes of confusion. Today, she appears fairly lucid. Appetite has improved. She did get out of bed and walk today. She has peripheral IV. No rashes or decubiti. REVIEW OF SYSTEMS: A 10-point review of system was negative other than what has been described above. ALLERGIES: None known. MEDICATIONS: Prior to her admission, not known. Currently, medications as noted including ceftriaxone. PAST MEDICAL HISTORY: Hypertension, anxiety, and hypothyroidism. SOCIAL HISTORY: Lives with her son. Nonsmoker and no significant alcohol intake. [address] [address] CONSULTATION Name: NAIMA GARCIA Room #: 359[facility] IN M.R.#: [id number] Admission: 04/30/19 Attend Phys: Ray Perry Discharge: Date of : 37 Report #: [id number] FAMILY HISTORY: Noncontributory. PHYSICAL EXAMINATION: VITAL SIGNS: Afebrile and hemodynamically stable. GENERAL: She was alert and cooperative and pleasant. Mild facial edema and erythema. No other skin lesions. No palpable adenopathy. EYES: Without scleral icterus. MOUTH: Without mucositis. NECK: Supple. LUNGS: Few crackles in the right base posteriorly. No consolidation. HEART: Regular, without murmur, gallop, or rub. ABDOMEN: Soft, nontender with no hepatosplenomegaly or mass. No CVA tenderness. Indwelling Bond catheter. GENITOURINARY: External genitalia without lesion or rash. RECTAL: Not performed. EXTREMITIES: Without clubbing, cyanosis or edema. NEUROLOGIC: Cranial nerves intact. Strength in upper and lower extremities is normal. MOOD: Normal. LABORATORY STUDIES: Hemoglobin 12, WBC 8.2 down from 14 on admission, platelet count 63,000, which has just dropped over the last several days. Sodium 141, potassium 3.9, creatinine 0.6. Liver function test normal. Urinalysis, pyuria, and bacteriuria. Urine culture, no growth. Blood cultures as noted above, 1 gram-positive bacillus, 1 gram-negative bacillus. Awaiting ID on that. Chest x-ray as noted above. Stool culture negative. IMPRESSION: An 84-year-old who presents with sepsis and altered mental status associated with leukocytosis. I am suspecting the gram-negative bacteremia related either to urinary tract infection or possibly colitis. She does have ongoing diarrhea. This has been an ongoing issue with her over the last several months at least. She appears to be improving. 1. Thrombocytopenia, etiology yet to be determined. 2. Hypertension. 3. Confusional state, improved. 4. Right lung infiltrate. RECOMMENDATIONS: 1. Add metronidazole. 2. Obtain CT scan of abdomen and pelvis. [address] [address] CONSULTATION Name: NAIMA GARCIA Room #: 359-P ADM IN M.R.#: [id number] Admission: 04/30/19 Attend Phys: Ray Perry Discharge: Date of : 37 Report #: [id number]. May need GI service to look at endoscopy in the future, if urinary tract is not the source. Check serial CBCs to follow her thrombocytopenia. <ELECTRONICALLY SIGNED> By: William Abdalla MD 05/08/19 1215 2033 1013 William Abdalla MD /nt
[2019-05-08 15:39] VITALS: BP 138/84
--- NOTE | 2019-05-08 15:57 | NUR ---
PT WING MEEK AND ENCOURAGED TO AMBULATE WITH ASSIST...WEAKNESS NOTED...
[2019-05-08 20:05] VITALS: BP 148/71
--- NOTE | 2019-05-09 03:17 | NUR ---
ASSESSMENT: P REMAIN ALERT AND ORIENT TIMES THREE. C/O BACK AND SHOULDER PAIN. PARTIAL RELIEF FROM PRN PAIN MEDICATIONS. TOLERATING TAKING MEDS WHOLE WITH WATER. VSS, AFEBRILE. SR PER MONITOR. SLOW PROGRESS TOWARDS DC GOALS, WILL CONTINUE TO MONTIOR,
[2019-05-09 04:13] VITALS: BP 144/91
[2019-05-09 07:56] VITALS: BP 146/84
[2019-05-09 11:18] VITALS: BP 110/59
[2019-05-09 15:32] VITALS: BP 142/75
[2019-05-09 19:55] VITALS: BP 138/89
--- NOTE | 2019-05-09 21:21 | NUR ---
PT UP TO BATHROOM MULTIPLE TIMES TODAY WITH JUST SBA, PT PROGRESSING TOWARDS DISCHARGE WELL, NO CONFUSION TODAY.
--- NOTE | 2019-05-10 03:28 | NUR ---
ASSUMED CARE OF PATIENT AT 1900. VSS, AFEBRILE. C/O GENERALIZED BODY PAIN THAT NEVER GOES AWAY. GIVEN PRN PAIN MEDS, HEATING PAD IN PLACE. UP WITH STANDBY TO THE BATHROOM. PROGRESSING TOWARDS POC GOALS.
[2019-05-10 03:45] VITALS: BP 119/66
[2019-05-10 07:43] VITALS: BP 143/84
--- NOTE | 2019-05-10 09:48 | NUR ---
ON-GOING ASSESSMENT: CM REVIEWED CHART AND MET WITH PT AT THE BEDSIDE. OT RECOMMENDING HH AND PT RECOMMENDING POST ACUTE VS HH. PT HAS [employer]. CM MET WITH PT TO DISCUSS. PT STATING SHE DOES NOT WANT TO GO TO SNF AND WANTS TO RETURN HOME WITH HH. REFERRAL WAS ALREADY SENT TO [facility] AND THEY CAN ACCEPT PATIENT. CM ATTEMPTED TO CONTACT PATIENTS SON WHO SHE LIVES WITH BUT NO ANSWER AT THIS TIME. CM WILL CONTINUE TO FOLLOW.
[2019-05-10 11:21] VITALS: BP 116/74
[2019-05-10 16:30] VITALS: BP 150/92
--- NOTE | 2019-05-10 18:16 | NUR ---
PT AMBULATED HALLS TODAY WITH PT AND TOLERATED WELL. PT TAKING IN GOOD PO. WILL DISCHARGE TO HOME IN AM WITH HOME HEALTH PER SW. WILL CONTINUE TO ASSESS.
[2019-05-10 19:37] VITALS: BP 121/75
[2019-05-11 00:25] VITALS: BP 147/89
--- NOTE | 2019-05-11 00:45 | NUR ---
Transfer pt from 3W to unit @about 0015. pt a&ox4. v/s stable and pt in stable condition. pt ambulates with 1 assit with a cane. pt was oriented to her room. pt c/o of left ear pain which she stated has been on and off for about a month now. pt was medicated per emar. pt calls for assistance approp. fall prec in place. call light within reach. will cont to monitor
[2019-05-11 05:29] VITALS: BP 135/77
[2019-05-11 07:56] VITALS: BP 125/72
--- NOTE | 2019-05-11 08:20 | NUR ---
ASSESSMENT CHARTED, MEDS CHARTED GIVEN. INITIAL ASSESSMENT WAS DONE, INITAL MEDS WERE GIVEN. PATIENTS CONDITION WAS DOWN GRADED TO MED SURG AND TRANSFERED TO THE FOURTH FLOOR. REPORT WAS CALLED AND PATIENT WAS MOVED.
[2019-05-11] MEDS ORDERED: METRONIDAZOLE500 M4 PO (10:49)
[2019-05-11] MEDS ORDERED: METOPROLOL SUCC50 MG PO (10:49)
[2019-05-11] MEDS ORDERED: ASPIR 8181 MG PO (10:49)
[2019-05-11] MEDS ORDERED: CIPRO500 MG PO (10:49)
[2019-05-11 10:58] VITALS: BP 125/72
[2019-05-11 14:18] VITALS: BP 129/76
--- NOTE | 2019-05-11 14:29 | NUR ---
CARE TEAM INDICATED THAT PT IS MEDICALLY STABLE TO DC HOME THIS DAY WITH [facility]. ORDERS SENT FOR HH SERVICES. NO OTHER CM INTERVENTION INDICATED. CASE CLOSED.
--- NOTE | 2019-05-11 14:34 | NUR ---
DISCHARGE ORDERS COMPLETED PER ATTENDING. PATIENT DISCHARGING TO HOME WITH [facility]. DISCHARGE/HOME HEALTH ORDERS FAXED TO [facility] INTAKE. CALL PLACED TO [facility], SPOKE WITH ROMEO HARMON. EDEN TO FACILITATE PATIENTS HH NEEDS.
[2019-05-11 15:01] VITALS: BP 141/84
--- NOTE | 2019-05-11 16:03 | NUR ---
Assumed pt care this am, VS have been stable. Pt is ableto ambulate with a cane with one assists. 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 Pt is continent and would call appropriately. POC followed, pt did inform of the discomfort in her right ear but did not want intervention from us and said she will go to her doctor for this when she discharges. DC instructions and prescriptions given to the pt, IV removed pt is now dc and was picked up by her son.
== END 2019-05-11 16:46 | disposition home health service (06) | DRG 871 ==
LOC: ER 21:34 → 3W 23:17 → EROBS 23:17 → 3W 05-01 00:27 → 4W 05-10 23:43 → ENTRNSPT 05-11 15:45 → EDTRNSPTSTS 05-11 15:51 → 4W 05-11 16:46
PROVIDERS: Emergency Medicine; Hospitalist; Nurse Practitioner Family; ADMIT Hospitalist
DX: A41.9 Sepsis, unspecified organism (principal); J18.9 Pneumonia, unspecified organism; G93.41 Metabolic encephalopathy; N39.0 Urinary tract infection, site not specified; E44.0 Moderate protein-calorie malnutrition; I47.1 Supraventricular tachycardia; D69.6 Thrombocytopenia, unspecified; E55.9 Vitamin D deficiency, unspecified; K31.89 Other diseases of stomach and duodenum; E87.6 Hypokalemia; T36.1X5A Adverse effect of cephalosporins and other beta-lactam antibiotics, initial encounter; I45.81 Long QT syndrome; B96.89 Other specified bacterial agents as the cause of diseases classified elsewhere; E83.42 Hypomagnesemia; I16.0 Hypertensive urgency; F41.9 Anxiety disorder, unspecified; E03.9 Hypothyroidism, unspecified; I10 Essential (primary) hypertension; Z88.0 Allergy status to penicillin; Z68.24 Body mass index [BMI] 24.0-24.9, adult; Z87.891 Personal history of nicotine dependence; Y92.89 Other specified places as the place of occurrence of the external cause; Z28.21 Immunization not carried out because of patient refusal
CPT/HCPCS: 10040; 10045; 10879

== ENCOUNTER 2019-09-07 14:34 | Inpatient (IN) | payer OTHER ==
[~2019-09-07] VITALS: Ht 154.9 cm; Wt 55.0 kg
[~2019-09-07 14:34] MED LIST changes: +ALPRAZOLAM XR3 MG; +ASPIR 8181 MG PO; +CIPRO500 MG PO; +DULOXETINE HCL20 MG PO; +FLEXERIL; +METOPROLOL; +METOPROLOL SUCC50 MG PO; +METRONIDAZOLE500 M4 PO; +MICROZIDE12.5 MG; +OXYCODONE HCL15 MG PO
[2019-09-07 14:58] VITALS: BP 110/80
[2019-09-07 18:22] LABS: ABSOLUTE NEUTROPHILS 13.6 thou/uL (1.4-8.2); BASOPHILS 0.1 % (0.0-2.0); EOSINOPHILS 0.1 % (0.0-3.0); HEMOGLOBIN 11.8 gm/dL (12.0-15.0); LYMPHOCYTES 7.3 % (24.0-44.0); MCH 29.5 pg (26.0-34.0); MCHC 32.9 g/dL (28.0-37.0); MCV 89.7 fL (80.0-100.0); MONOCYTES 8.2 % (1.0-8.0); PLATELET COUNT 210 thou/uL (150-400); POLYS 84.3 % (36.0-66.0); RBC 4.02 mil/uL (4.20-5.00); RDW 13.3 % (10.5-14.5); WBC 16.1 thou/uL (4.0-11.0)
[2019-09-07 18:49] LABS: ALBUMIN 2.7 g/dL (3.4-5.0); CALCIUM 8.5 mg/dL (8.5-10.1); CREATININE 1.4 mg/dL (0.6-1.0); DIRECT BILIRUBIN 0.1 mg/dL (<0.1-0.2); TOTAL BILIRUBIN 0.7 mg/dL (<0.1-1.0); TOTAL PROTEIN 5.3 g/dL (6.4-8.2); TROPONIN-I 0.22 ng/mL (<0.06)
[2019-09-07 18:50] LABS: POTASSIUM 2.7 mmol/L (3.5-5.1)
[2019-09-07 19:47] LABS: URINE BILIRUBIN NEGATIVE (Negative); URINE BLOOD NEGATIVE (Negative); URINE CLARITY CLEAR; URINE COLOR YELLOW; URINE GLUCOSE-RANDOM* NEGATIVE (Negative); URINE KETONES TRACE (Negative); URINE LEUKOCYTES-REFLEX NEGATIVE (Negative); URINE NITRITE-REFLEX NEGATIVE (Negative); URINE PROTEIN (DIPSTICK) NEGATIVE (Negative); URINE UROBILINOGEN 0.2 E.U./dl (0.2-1.0)
[2019-09-07 21:27] VITALS: BP 137/70
[2019-09-07] MEDS ORDERED: OXYCODONE HCL15 MG PO (21:52)
[2019-09-07] MEDS ORDERED: LISINOPRIL2.5 MG PO (21:52)
[2019-09-07] MEDS ORDERED: XANAX 0.5 MG0.5 MG PO (21:53)
[2019-09-07] MEDS ORDERED: DULOXETINE HCL60 MG PO (21:53)
[2019-09-07] MEDS ORDERED: SYNTHROID125 MC1 PO (21:54)
[2019-09-07] MEDS ORDERED: TOPROL XL100 MG PO (21:55)
[2019-09-07 23:41] VITALS: BP 134/64
[2019-09-08 03:34] LABS: ABSOLUTE NEUTROPHILS 15.2 thou/uL (1.4-8.2); EOSINOPHILS 0.1 % (0.0-3.0); HEMATOCRIT 41.9 % (37.0-47.0); HEMOGLOBIN 13.6 gm/dL (12.0-15.0); LYMPHOCYTES 10.8 % (24.0-44.0); MCH 28.7 pg (26.0-34.0); MCHC 32.5 g/dL (28.0-37.0); MCV 88.3 fL (80.0-100.0); MONOCYTES 5.2 % (1.0-8.0); PLATELET COUNT 235 thou/uL (150-400); POLYS 83.9 % (36.0-66.0); RBC 4.74 mil/uL (4.20-5.00); RDW 13.7 % (10.5-14.5); WBC 18.1 thou/uL (4.0-11.0)
[2019-09-08 03:40] LABS: CALCIUM 9.4 mg/dL (8.5-10.1); CREATININE 1.4 mg/dL (0.6-1.0); POTASSIUM 3.1 mmol/L (3.5-5.1)
[2019-09-08 03:48] LABS: MAGNESIUM 2.4 mg/dL (1.8-2.4); TROPONIN-I 0.23 ng/mL (<0.06)
[2019-09-08 05:35] VITALS: BP 174/68
[2019-09-08 05:43] VITALS: BP 174/68
[2019-09-08 07:30] VITALS: BP 171/68
--- NOTE | 2019-09-08 08:08 | NUR ---
RECEIVED REPORT FROM MARKOS ED RN.PATIENT ARRIVED TO ROOM 200 AROUND 2345.A/O X 4.VERY WEAK.REPOSITIONED Q2 HOURS AND NEEDED.PATIENT'S STATES SHE HAS POOR APPETITE.MONITOR SHOWS SR.POTASSIUM AND MAGNESIUM WAS REPLACED.ANTIBIOTIC GIVEN.SON WAS HERE.POC CONTINUED.
--- NOTE | 2019-09-08 08:23 | EKG ---
[facility] [place] [address] ELECTROCARDIOGRAM REPORT Name: NAIMA GARCIA Room #: 200-I ADM IN M.R.#: [id number] Admission: 09/07/19 Attend Phys: Imelda Chavez MD Discharge: Date of : 37 Report #: [id number] THIS REPORT FOR: cc: Valeriano Powers MD, Christopher T. MD Couchonnal, Luis F. MD ~ THIS REPORT FOR: //name// [facility] ED Test Date: 2019-09-07 Test Time: 19:13:43 Pat Name: NAIMA GARCIA Department: Room: 200 Gender: F Unhairing Inspector: : 1935 Requested By: Bailee Craft Order Number: [id number] MD: Chino Webster Measurements Intervals [place] Rate: 107 P: 81 WI: 163 QRS: 63 QRSD: 94 T: 86 QT: 358 QTc: 478 Interpretive Statements Sinus tachycardia Abnormal R-wave progression, late transition LVH with secondary repolarization abnormality Compared to ECG 05/04/2019 11:04:07 Left ventricular hypertrophy now present Supraventricular tachycardia no longer present Electronically Signed On 09-08-2019 8:22:57 SOLAR DESIGNER/INSTALLER by Chino Webster [email or web address] <ELECTRONICALLY SIGNED> By: Chino Webster MD 09/08/19821 12 12 Chino Webster MD /EPI
--- NOTE | 2019-09-08 08:23 | EKG ---
[facility] [address] [facility] [place] [address] ELECTROCARDIOGRAM REPORT Name: NAIMA GARCIA Room #: 200-I ADM IN M.R.#: [id number] Admission: 09/07/19 Attend Phys: Imelda Chavez MD Discharge: Date of : 37 Report #: [id number] THIS REPORT FOR: cc: Valeriano Powers MD, Christopher T. MD Couchonnal, Luis F. MD ~ THIS REPORT FOR: //name// [facility] ED Test Date: 2019-09-07 Test Time: 19:00:17 Pat Name: NAIMA GARCIA Department: Room: 200 Gender: F Sas Architect: ESHEETS : 1935 Requested By: Anuj Sky Order Number: [id number] MD: Chino Webster Measurements Intervals [place] Rate: 99 P: 47 HI: 165 QRS: 35 QRSD: 94 T: 61 QT: 383 QTc: 492 Interpretive Statements Sinus rhythm Probable left atrial enlargement Abnormal R-wave progression, late transition LVH with secondary repolarization abnormality Compared to ECG 05/04/2019 11:04:07 Left ventricular hypertrophy now present Supraventricular tachycardia no longer present Electronically Signed On 09-08-2019 8:22:29 ARMORED TRUCK DRIVER by Chino Webster [email or web address] <ELECTRONICALLY SIGNED> By: Chino Webster MD 09/08/19821 99 99 Chino Webster MD /EPI
--- NOTE | 2019-09-08 08:24 | EKG ---
[facility] [place] [address] ELECTROCARDIOGRAM REPORT Name: NAIMA GARCIA Room #: 200-I ADM IN M.R.#: [id number] Admission: 09/07/19 Attend Phys: Imelda Chavez MD Discharge: Date of : 37 Report #: [id number] THIS REPORT FOR: cc: Valeriano Powers MD, Christopher T. MD Couchonnal, Luis F. MD ~ THIS REPORT FOR: //name// [facility] ED Test Date: 2019-09-07 Test Time: 20:18:32 Pat Name: NAIMA GARCIA Department: Room: 200 Gender: F Russian Rubber: [facility] : 1935 Requested By: Bailee Craft Order Number: [id number] MD: Chino Webster Measurements Intervals [place] Rate: 88 P: 62 IA: 179 QRS: 56 QRSD: 90 T: 264 QT: 349 QTc: 423 Interpretive Statements Sinus rhythm Nonspecific repol abnormality, diffuse leads Compared to ECG 05/04/2019 11:04:07 Supraventricular tachycardia no longer present Electronically Signed On 09-08-2019 8:23:34 BINGO CHECKER by Chino Webster [email or web address] <ELECTRONICALLY SIGNED> By: Chino Webster MD 09/08/19 0823 17 17 Chino Webster MD /EPI
[2019-09-08 11:00] VITALS: BP 122/78
--- NOTE | 2019-09-08 11:45 | NUR ---
ASSUMED CARE AT 0700, SHIFT ASSESSMENT DONE, MEDS GIVEN, VSS. PT VERY WEAK, WORKED WITH OCCUPATIONAL THERAPHY, DENIED TO WORK WITH PHYSICAL THERAPHY. REPORTED PAIN, PRN PAIN MED GIVEN WITH RELIEF. NSR ON TELE, ROOM AIR. WILL CONTINUE TO ASSES AND ASSIST WITH ADLs NEEDED.
[2019-09-08 13:34] LABS: URINE BILIRUBIN NEGATIVE (Negative); URINE BLOOD NEGATIVE (Negative); URINE CLARITY CLEAR; URINE COLOR YELLOW; URINE GLUCOSE-RANDOM* NEGATIVE (Negative); URINE KETONES 1+ (Negative); URINE LEUKOCYTES-REFLEX NEGATIVE (Negative); URINE NITRITE-REFLEX NEGATIVE (Negative); URINE PROTEIN (DIPSTICK) NEGATIVE (Negative); URINE SPECIFIC GRAVITY 1.025 (1.005-1.035); URINE UROBILINOGEN 0.2 E.U./dl (0.2-1.0)
[2019-09-08 14:30] VITALS: BP 126/62
[2019-09-08 19:50] VITALS: BP 131/70
[2019-09-09 04:49] VITALS: BP 136/77
--- NOTE | 2019-09-09 05:23 | NUR ---
PT RESTING QUIETLY REPOSITIONED FOR C/O BACK PAIN, VSS, FLUIDS INFUSING PER IV, WILL CON'T TO MONITOR PER PPOC.
[2019-09-09 06:02] LABS: ABSOLUTE NEUTROPHILS 8.7 thou/uL (1.4-8.2); BASOPHILS 0.4 % (0.0-2.0); EOSINOPHILS 2.5 % (0.0-3.0); HEMATOCRIT 35.3 % (37.0-47.0); HEMOGLOBIN 11.7 gm/dL (12.0-15.0); LYMPHOCYTES 18.7 % (24.0-44.0); MCH 29.3 pg (26.0-34.0); MCHC 33.2 g/dL (28.0-37.0); MCV 88.3 fL (80.0-100.0); MONOCYTES 7.3 % (1.0-8.0); PLATELET COUNT 188 thou/uL (150-400); POLYS 71.1 % (36.0-66.0); RDW 13.5 % (10.5-14.5); WBC 12.3 thou/uL (4.0-11.0)
[2019-09-09 06:45] LABS: CALCIUM 8.5 mg/dL (8.5-10.1); PHOSPHORUS 2.2 mg/dL (2.5-4.9); POTASSIUM 3.4 mmol/L (3.5-5.1)
[2019-09-09 07:30] VITALS: BP 147/69
[2019-09-09 08:29] LABS: MAGNESIUM 2.1 mg/dL (1.8-2.4)
[2019-09-09 11:30] VITALS: BP 117/65
--- NOTE | 2019-09-09 15:46 | NUR ---
Case opened to follow for dc planning. Account Receivable Associate visited with the pt at bedside. She is a&ox4 this afternoon. She reports that she lives with her son and has good support at home. She normally gets around with a cane and is able to do the couple of steps to get in the house and 5 up to her bedroom. She has had hh with [facility] in the Fall of 2018 but does not feel she needs them or therapy evals at this time. GI workup in progress. She denies any dc need at this time. Will follow along should needs arise.
[2019-09-09 17:00] VITALS: BP 127/72
--- NOTE | 2019-09-09 19:55 | NUR ---
ASSUMED CARE OF PATIENT AT 0700. ASSESSMENTS COMPLETED. TELE STRIPS PRINTED AND PLACED IN THE CHART. PATIENT VERY LETHARGIC AND WEAK, RESTING THE MAJORITY OF THE DAY. PATIENT REFUSED PHYSICAL THERAPY. PATIENT ATE 80% OF BREAKFAST AND IMMEDIATELY GOT NAUSEATED. PATIENT ATE LESS THAN 15% OF BOTH LUNCH AND DINNER. PATIENT TO GO NPO AT MIDNIGHT, ANTICIPATING EGD IN THE MORNING. PATIENT TO CONTINUE WITH POC.
[2019-09-09 20:00] VITALS: BP 130/60
[2019-09-09 20:01] VITALS: BP 130/65
--- NOTE | 2019-09-10 00:41 | HC ---
[facility] [place] [address] CONSULTATION Name: NAIMA GARCIA Room #: 200-I ADM IN .R.#: [id number] Admission: 09/07/19 Attend Phys: Imelda Chavez MD Discharge: Date of : 36 Report #: [id number] THIS REPORT FOR: cc: Valeriano Powers MD, Christopher T. MD Graessle, Donna M. DO ~ CC: Valeriano Chavez MD GASTROENTEROLOGY CONSULTATION She is a patient of Dr. Valeriano Powers and Dr. Imelda Chavez. CHIEF COMPLAINT: This is a very pleasant 84-year-old female who is admitted to the hospital with nausea and vomiting that occur intermittently for several months now. The patient has a history of peptic ulcer disease that was refractory to medical care and therefore underwent a vagotomy at one point for refractory disease. 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 She may also have gastroparesis as a result of the vagotomy that may be contributing to her nausea. The patient states as far as she knows she has not had any other surgery on her stomach and none of her stomach was removed. She says her usual weight is about 110-115 pounds and currently she is down to 97 pounds. After hydration, her weight is up to 112 pounds on the bed scale. This morning, she was very hungry and ate all of her biscuits and sausage and gravy and some other items on her tray and shortly after she finished eating, she became nauseated. We are giving her Zofran for the nausea at this time. The patient has also had diarrhea intermittently that she associates with "dumping syndrome." She says it happens monthly for several days and then it clears up again until the next episode the next month. 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 She has hypokalemia of 2.7, hypophosphatemia of 2.2, hyponatremia of 130. Her troponin is elevated at 0.22, but that this is not indicative of any type of acute cardiac injury at this time. Her white blood cell count is 16.1 and her hemoglobin is 11.8. PAST MEDICAL HISTORY: Significant for peptic ulcer disease as mentioned, decreased appetite. She has had gastroesophageal reflux and thinks she has had a history of a hiatal hernia as well. She has a history of diverticulosis, hypertension, hypothyroidism, anxiety. PAST SURGICAL HISTORY: Significant for an appendectomy, cholecystectomy, total abdominal hysterectomy with bilateral salpingo-oophorectomy. She has had 2 back surgeries. She has had cataract surgeries with lens implants. She has had a vagotomy [place] [address] CONSULTATION Name: NAIMA GARCIA Room #: 200-I ADM IN M.R.#: [id number] Admission: 09/07/19 Attend Phys: Imelda Chavez MD Discharge: Date of : 36 Report #: [id number] ALLERGIES: PENICILLIN. MEDICATIONS: Prior to admission included the following: Alprazolam, duloxetine, Synthroid, Zestril, Toprol, oxycodone. SOCIAL HISTORY: She does not smoke. She does not drink alcohol. FAMILY HISTORY: Significant for colon cancer in her mother who developed it when she was in her 80s and again when she was 95 years old. There is no history of Crohn's disease or ulcerative colitis in the family. REVIEW OF SYSTEMS: She denies any dysphagia or odynophagia. She does have gastroesophageal reflux by history, but has not bothered her recently. She thinks she has had a history of hiatal hernia. She has had a history of peptic ulcer disease that was refractory to medical therapy and ended up having a vagotomy done. She has had nausea and vomiting. Her weight has gone down approximately 13 pounds unintentionally. Her appetite is poor. She denies any hematemesis, hematochezia or melena. She has intermittent bouts of diarrhea. She denies any abdominal pain at this time, but she says at times she does have diffuse abdominal pain. It does not seem to be related at all to diarrhea or to food intake, however. PHYSICAL EXAMINATION: GENERAL: Reveals a well-developed, thin, 84-year-old female, in no apparent distress at the time of the examination. She is awake, alert, oriented x 4 and cooperative. VITAL SIGNS: Blood pressure is 147/69, pulse 73, respirations are 18, her temperature is 97.8. HEENT: She is normocephalic, atraumatic and anicteric. HEART: Rate and rhythm are regular with a normal S1 and S2. LUNGS: Clear bilaterally in all seo. ABDOMEN: Soft. Bowel sounds are present in all 4 quadrants. There is no palpable organomegaly or mass. There is tenderness to palpation in the midepigastrium, but no rebound or guarding. EXTREMITIES: Warm and dry. No peripheral cyanosis, clubbing or edema. NEUROLOGIC: She appears grossly intact without lateralizing signs. IMPRESSION: 1. Nausea and vomiting intermittently for several months. The patient has a history of peptic ulcer disease and even underwent a vagotomy at one point for refractory peptic ulcer disease. 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 It is also possible that she may have developed gastroparesis as a result of vagotomy and the nausea may be a part of that problem. She says that as far as she knows no other surgeries were done on her stomach and none of her [facility] [address] [place] [address] CONSULTATION Name: NAIMA GARCIA Room #: 200-I ADM IN [facility]#: [id number] Admission: 09/07/19 Attend Phys: Imelda Chavez MD Discharge: Date of : 36 Report #: [id number] stomach was removed. Her usual weight is about 110-115 pounds and currently she was 97 pounds on admission, but after hydration, her weight is up to 212 pounds. This morning, she was very hungry and ate all of her biscuits and sausage and gravy and some other vitamins on her tray and shortly after that she became nauseated, we are giving her Zofran for this. 2. Diarrhea, acute. The patient denies any foreign travel or exposure to other people who are ill. She is afebrile. She says this is a recurrent problem about once a month. She has it for a few days and then it stopped spontaneously. Yesterday was her last stool. Her stools have been somewhat dark because of Pepto-Bismol. 3. Low TSH level 0.0359. She is taking Synthroid and we may need to reduce her dose. 4. Hypokalemia 2.7, hypophosphatemia 2.2, hyponatremia 130, troponin 0.22. White count is up to 16.1, hemoglobin 11.8. 5. The patient's mother was diagnosed with colon cancer when she was in her 80s and then diagnosed with it again at age 95 after she had it resected previously. The patient's last colonoscopy was about 6-7 years ago. 6. History of gastroesophageal reflux and peptic ulcer disease as well as diverticulosis, hypertension and anxiety. RECOMMENDATIONS: 1. My recommendations were for her to have EGD in the morning. She will be n.p.o. after midnight. We will obtain a consent for EGD by Dr. Hartman. We will schedule an EGD for tomorrow morning. The patient has already had breakfast today, was started on Protonix 40 mg 1 p.o. daily. 2. The patient may need another colonoscopy because of her mother's history of colon cancer. 3. Replace her electrolytes as you are doing. 4. 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 Thank you very much once again for allowing me to participate in her care, Dr. Chavez. <ELECTRONICALLY SIGNED> By: Angie Hassan DO 09/10/19 0041 1036 1122 Angie Hassan DO /nt
[2019-09-10 03:44] VITALS: BP 146/86
--- NOTE | 2019-09-10 05:10 | NUR ---
ASSESSMENT: PT REMAIN ALERT AND ORIENT TIMES THREE. VERY WEAK, USING BEDPAN. DID HAVE FREQUENT LOOSE STOOLS, STOOL SAMPLE SENT. VSS.,AFEBRILE. PT'S IV WAS INFILTRATED AT THE BEGINNING OF THE SHIFT. A NEW IV PLACED LEFT WRIST; ANTIBIOTICS BEHIND SCHEDULE. STOOLS SUBSIDING. NPO FOR EGD THIS AM. WING PATENT. UO ADEQUATE AMT. TAKES MEDS WITH APPLE SAUCE AND ONE AT A TIME. SLOW PROGRESS TOWARDS DC GOALS, WILL CONTINUE TO MONITOR.
[2019-09-10 07:19] VITALS: BP 155/79
[2019-09-10 08:56] LABS: ALBUMIN 2.3 g/dL (3.4-5.0); CALCIUM 9.2 mg/dL (8.5-10.1); PHOSPHORUS 2.8 mg/dL (2.5-4.9); POTASSIUM 3.7 mmol/L (3.5-5.1)
[2019-09-10 11:16] VITALS: BP 155/79
--- NOTE | 2019-09-10 11:50 | NUR ---
ASSUMED CARE AT 0700, SHIFT ASSESSMENT DONE, NPO SINCE LAST NIGHT, IV ANTIBIOTICS GIVEN. DIMAS IN PLACE. WILL CONTINUE TO ASSESS AND ASSIST WITH ADLs NEEDED.
--- NOTE | 2019-09-10 15:16 | NUR ---
CONSULT REC'D TO REVIEW DC OPTIONS WITH THE PT. SHE IS NOW SAYING SHE DOES NOT FEEL STRONG ENOUGH TO RETURN HOME WITH HER SON AND WOULD LIKE TO PURSUE SNF STAY FOR REHAB. PT/OT WORKING WITH HER AT THIS TIME. SHE WOULD BENEFIT FROM A SNF STAY. SHE DENIES PREFERENCE FOR SNF PLACEMENT WANTING [facility] AND IN NETWORK WITH INS PLAN. WILL HAVE THE DC CLEAT [facility]AYER FAX REFERRALS TO [facility] AND [facility]. ATTEMPTED TO CALL THE SON KATHLEEN ON HIS CELL NUMBER [phone] AND LEFT MESSAGE. NO ANSWER AT THE HOME NUMBER. DANDRE HAS NOT SEEN HER SINCE APRIL AND IS NO LONGER IN NETWORK WITH HER INS. WILL ASK ARIADNA BERMUDEZ TO FOLLOW SHOULD SHE DECIDE TO TRY HOME WITH . SNF REFERRALS STARTED. AWAITING [id number]. WILL FOLLOW. CARE TEAM UPDATED.
--- NOTE | 2019-09-10 17:06 | NUR ---
FAXED REFERRAL TO [facility] SPOKE WITH AMEYA IN ADM SHE RECEIVED REFERRAL AND WILL DO A ONSITE VISIT ON FRIDAY. FAXED REFERRAL TO [facility] RECEIVED CONFIRMATION AND WILL F/U WITH FACILITY ON FRIDAY. FAXED REFERRAL TO [facility] RECEIVED CONFIRMATION WILL F/U WITH FACILITY ON FRIDAY AM. FAXED REFERRAL TO [facility] RECEIVED CONFIRMATION AND WILL F/U WITH FACILITY ON FRIDAY. DP TO FOLLOW
--- NOTE | 2019-09-10 17:51 | P ---
[facility] [place] [address] PROCEDURE REPORT Name: NAIMA GARCIA Room #: 200-I ADM IN M.R.#: [id number] Admission: 09/07/19 Attend Phys: Imelda Chavez MD Discharge: Date of : 36 Report #: [id number] THIS REPORT FOR: cc: Valeriano Powers MD, Christopher T. MD Thesing, John A. MD ~ CC: Valeriano Chavez BRIEF HISTORY: The patient is an 84-year-old woman with previous gastric surgery for refractory peptic ulcer disease in the 90s. She has had complaints of increasing nausea with some vomiting, but more nausea and vomiting. She also has bouts of diarrhea. In addition, she takes OxyContin on a daily basis and has done so for many years. PREOPERATIVE DIAGNOSIS: Nausea, vomiting and bouts of diarrhea. POSTOPERATIVE DIAGNOSES: 1. Gdmoelem-se-hekwwj diffuse gastritis with small amount of bile in the stomach. 2. Gastric surgical changes consistent with vagotomy and antrectomy. MEDICATIONS: Deep sedation with propofol per anesthesia. SPECIMENS: 1. Small bowel biopsies to rule out celiac disease. 2. Gastric biopsies. ESTIMATED BLOOD LOSS: 3 mL. PROCEDURE: EGD with biopsy. FINDINGS: Prior to propofol sedation, procedure of upper endoscopy discussed with the patient as well as potential risks and its complications. She indicates she understands and desires to proceed. DESCRIPTION OF PROCEDURE: With the patient in left lateral decubitus position, the Olympus video endoscope was inserted in the cervical esophagus under direct vision without difficulty. Examination of this organ through its entire length revealed normal esophageal mucosa down the squamocolumnar junction. The squamocolumnar junction was inspected and noted to be unremarkable. There was no evidence of ulcers, erosions or hiatus hernia or Williamson mucosa. The scope was advanced into the stomach, which was examined on end view as well as retroflexed views. There was a pattern of diffuse gastritis. No ulcers or erosions were seen. The gastritis was moderately severe. Upon retroflexion, no mass or lesions were seen. Examination of the distal stomach revealed surgical [facility] [address] [place] [address] PROCEDURE REPORT Name: NAIMA GARCIA Room #: 200-I ADM IN .R.#: [id number] Admission: 09/07/19 Attend Phys: Imelda Chavez MD Discharge: Date of : 36 Report #: [id number] changes, felt to be consistent with vagotomy and antrectomy. There was no evidence of outlet obstruction. Gastric anastomosis was wide open of the duodenum. I also might point out that there was a small amount of bile in her stomach. Scope was advanced in the duodenum. The duodenal mucosa was unremarkable. No evidence of ulcer, lesion, strictures or masses. The duodenal papilla was identified and noted to be unremarkable. At that point, the scope was slowly withdrawn and careful circumferential views confirmed the above findings. The patient tolerated the procedure well. DISPOSITION: The patient with nausea and vomiting. Vomiting seems to be a major feature per the patient report. Very likely, her oxycodone is a significant factor. She does have gastritis and may have a bile reflux gastritis, and therefore, we will start her on sucralfate 4 times daily. In addition, also we will place her on a Transderm scopolamine patch. We will follow up on biopsies. She does report diarrhea. If symptoms persist, colonoscopy may be a consideration at a later date. <ELECTRONICALLY SIGNED> By: Matt Hartman MD 09/10/19 1751 1213 1240 Matt Hartman MD /nt
[2019-09-10 18:04] VITALS: BP 145/76
[2019-09-10 19:44] VITALS: BP 137/74
[2019-09-11 04:24] VITALS: BP 141/71
--- NOTE | 2019-09-11 05:25 | NUR ---
ASSUME CARE 1900. PT/VITALS STABLE. INTERMITTENT GENERALIZED PAIN NOTED. POOR TOLERANCE TO ACTIVITY. WILL BENEFIT FROM REHAB. ASSESSMENT AAS CHARTED. PROGRESSING MODERTELY TO POC. NO DISTRESS NOTED THROUGH THE NIGHT. PLAN IS TO CONTINUE PPI TX FOR GASTRITIS AND MONITOR NAUSEA AND VOMITING. WELL CONTINUE TO MONITOR AND FOLLOW WITH POC
[2019-09-11 08:23] VITALS: BP 149/85
--- NOTE | 2019-09-11 14:28 | NUR ---
ASSUMED CARE OF PT AT SHIFT CHANGE. ASSESSMENT CHARTED. MEDS GIVEN PER MAR IN APPLESAUCE. PT A&OX4. PT REPORTED NOT SLEEPING DURING THE NIGHT, REQUESTED SOMETHING DIFFERENT. C/O PAIN TREATED WITH PO MEDS WITH PARTIAL RELIEF. TRANSFERRED PT TO RM 410, CALLED REPORT TO RECEIVING NURSE.
[2019-09-11 14:47] VITALS: BP 160/98
--- NOTE | 2019-09-11 17:49 | NUR ---
84 YO FEMALE TRANSFERED FROM 2N. A&OX4. IV INTACT IN L WRIST DIMAS IN PLACE. PT PLACED ON PUREED DIET TODAY. LOOSE STOOL X 1 TODAY. ORIENTED PT ROOM/ CALL LIGHT W/I REACH, BED ALARM IS ON.
[2019-09-11 19:10] VITALS: BP 161/101
[2019-09-11 22:00] VITALS: BP 161/101
[2019-09-11 22:35] VITALS: BP 161/101
[2019-09-12 00:10] VITALS: BP 128/79
--- NOTE | 2019-09-12 04:41 | NUR ---
ASSUMED CARE OF PATIENT AT APPROX. 1930. ASSESSMENT CHARTED. MEDICATIONS GIVEN PER SEP. PATIENT IS A&OX4, REPORTED TO BE FORGETFUL/CONFUSED AT TIMES HOWEVER THIS IS NOT OBSERVED THIS SHIFT. PATIENT C/O PAIN; BP AND HR ELEVATED S/T PAIN. RECHECKED AND WNL AFTER PRN PAIN MED ADMINISTERED. PATIENTS NECK AND BACK PAIN REMAINS INTRACTABLE. PATIENT REFUSES TURNS D/T PAIN. ROLLED TOWEL PLACED AROUND NECK PROVIDED SOME RELEIEF. PATIENT ALSO C/O DIARRHEA. NO EPISODES TONIGHT. BOWEL SOUNDS ACTIVE, PAIN AND TENDERNES UPON PALPATION DENIED THIS SHIFT. PATIENT DENIES ANY OTHER NEEDS. DIMAS INTACT; OUTPUT ADEQUATE. CM IS FOLLOWING; SEVERAL FACLITIES ARE BEING LOOKED AT FOR D/C AND WILL BE FOLLOWED UP ON WEDNESDAY 09/13. PATIENT DENIES OTHER NEEDS AT THIS TIME. FALL PRECAUTIONS IN PLACE. WILL CONTINUE TO MONITOR AND FOLLOW PLAN OF CARE.
[2019-09-12 07:50] VITALS: BP 144/87
[2019-09-12 08:58] LABS: ABSOLUTE NEUTROPHILS 5.3 thou/uL (1.4-8.2); BASOPHILS 0.5 % (0.0-2.0); HEMATOCRIT 40.2 % (37.0-47.0); HEMOGLOBIN 13.1 gm/dL (12.0-15.0); LYMPHOCYTES 28.9 % (24.0-44.0); MCH 29.2 pg (26.0-34.0); MCHC 32.5 g/dL (28.0-37.0); MCV 90.1 fL (80.0-100.0); PLATELET COUNT 165 thou/uL (150-400); POLYS 55.6 % (36.0-66.0); RBC 4.47 mil/uL (4.20-5.00); RDW 13.8 % (10.5-14.5); WBC 9.5 thou/uL (4.0-11.0)
[2019-09-12 09:31] LABS: ALBUMIN 2.2 g/dL (3.4-5.0); CALCIUM 9.5 mg/dL (8.5-10.1); CREATININE 1.1 mg/dL (0.6-1.0); POTASSIUM 3.4 mmol/L (3.5-5.1); TOTAL BILIRUBIN 0.2 mg/dL (<0.1-1.0); TOTAL PROTEIN 4.7 g/dL (6.4-8.2)
[2019-09-12 09:38] LABS: MAGNESIUM 1.4 mg/dL (1.8-2.4)
--- NOTE | 2019-09-12 15:07 | NUR ---
PT A&OX4. WEAK TODAY WITH BACK PAIN. IV FLUIDS INCREASED TO 50ML/HR, LIDOCAIN 5% PATCH ORDERED FOR BACK PAIN. REFUSED TO SIT EARLIER IN CHAIR. PT IS BEING TURNED Q 2 HRS. WILL CONT POC.
[2019-09-12 16:07] VITALS: BP 138/76
[2019-09-12 20:36] VITALS: BP 162/93
--- NOTE | 2019-09-13 03:41 | NUR ---
PATIENT ALERT AND ORIENTED X4. AT BEGINNING OF SHIFT PATIENT HAD DIARRHEA AND EMESIS ALONG WITH HER IV ACCESS LEAKING. PATIENT HAD LOW POTASSIUM AND MAGNESIUM AND NEW ORDERS HAD BEEN GIVEN TO THE AM NURSE WHO WAS IN THE PROCESS OF ADMINISTERING THEM. NEW IV STARTED AND MG GIVEN. AFTER PATIENTS STOMACH SETTLED THIS NURSE GAVE HER POTASSIUM 20MEQ PO, OXY 5MG PO AND ALPRAZOLAM 0.5MG PO. PATIENT HAD ONE MEDIUM LOOSE STOOL AND NO FURTHER EMESIS. IVF OF NORMAL SALINE AT 50/HR WAS STARTED PER AM ORDER BY THIS NURSE AND IS INFUSING W/O COMPLICATION. GIVEN ANOTHER PRN FOR PAIN AT 0330 FOR PAIN /. TEACHING DONE ON KEEPING LEVEL OF PAIN AT FIVE OR BELOW. AM BLOOD DRAW WILL BE MONITORED. RESTING QUIETLY.
--- NOTE | 2019-09-13 03:51 | NUR ---
THIS NURSE SPOKE TO PATIENTS SON (TREMAINE) WHO WAS SEEN LEAVING AT CHANGE OF SHIFT. HE CALLED BACK AND SPOKE TO THIS NURSE AT APPROX 2200 TO CHECK ON HIS MOTHER. A REPORT WAS GIVEN AND HE WILL RETURN TODAY. POSSIBLE VIDEO SWALLOW PER AM NURSE, NOT SCHEDULED OF YET. PATIENT TOOK MEDS WITH PUDDING W/O COUGHING.
[2019-09-13 06:14] LABS: ABSOLUTE NEUTROPHILS 7.5 thou/uL (1.4-8.2); BASOPHILS 0.5 % (0.0-2.0); EOSINOPHILS 4.2 % (0.0-3.0); HEMATOCRIT 37.4 % (37.0-47.0); HEMOGLOBIN 12.3 gm/dL (12.0-15.0); LYMPHOCYTES 20.4 % (24.0-44.0); MCH 29.5 pg (26.0-34.0); MCHC 32.8 g/dL (28.0-37.0); MCV 89.9 fL (80.0-100.0); MONOCYTES 8.5 % (1.0-8.0); PLATELET COUNT 127 thou/uL (150-400); POLYS 66.4 % (36.0-66.0); RBC 4.16 mil/uL (4.20-5.00); RDW 14.2 % (10.5-14.5); WBC 11.3 thou/uL (4.0-11.0)
[2019-09-13 06:37] LABS: CALCIUM 9.5 mg/dL (8.5-10.1); CREATININE 1.1 mg/dL (0.6-1.0); MAGNESIUM 1.5 mg/dL (1.8-2.4); PHOSPHORUS 2.4 mg/dL (2.5-4.9); POTASSIUM 3.8 mmol/L (3.5-5.1)
[2019-09-13 09:04] VITALS: BP 164/83
--- NOTE | 2019-09-13 14:39 | NUR ---
DISCHARGE PLANNING. PATIENT CLINICAL UPDATES FAXED TO [facility] FOR REVIEW. CALL PLACED TO [facility] TO NOTIFY. VERIFIED CLINICALS RECEIVED WITH AMEYA, BRAND INSPECTOR. REBECCAT TO DO ONSITE BEDSIDE CONSULT WITH PATIENT. UNIT SW NOTIFIED. PATIENT CLINICAL UPDATES FAXED TO [facility] PER REQUEST. CALL PLACED TO [facility] TO NOTIFY. AWAITING RESPONSE.
--- NOTE | 2019-09-13 16:21 | NUR ---
SW reviewed chart and spoke with nursing and attending physician. [facility] and is slowly progressing towards goals for discharge. Recommendation made for pt to go to post-acute placement. Referrals sent to [facility] and [facility] for review. SW has received calls back from [facility] and [facility]. DANIEL met with pt at bedside to provide update. No preference voice of facility: [facility] or [facility]. Pt agreeable with plan for either SNF. [facility] liaison did onsite evaluation and can accept pt. Awaiting input from [facility]. network planner to send updates to both facilities for review. DANIEL is following to assist as needed with discharge planning.
--- NOTE | 2019-09-13 17:07 | PATH ---
[facility] [place] [address] PATHOLOGY RPT PROCEDURE Name: LISANDRA GARCIA Room #: 410-P ADM IN M.R.#: [id number] Admission: 09/07/19 Date of : 37 Discharge: Report #: [id number] Path Case #: [id number] [facility] Accession Number: [id number] . 01 Material submitted: . PART A: small bowel - BX SMALL BOWEL PART B: stomach - BX GASTRITIS . 01 Clinical history: . Nausea, diarrhea, gastritis. . 02 Diagnosis: A. Small bowel mucosa, small bowel rule out celiac disease, endoscopic biopsy: - No diagnostic abnormalities present. - Negative for villous blunting or increase in intraepithelial lymphocytes. . B. Gastric mucosa, gastritis rule out H. pylori, endoscopic biopsy: - Moderate reactive gastropathy. - Negative for intestinal metaplasia or atrophy. - Negative for Helicobacter pylori (properly controlled immunohistochemical stain performed). . (IUV:marito; 09/13/2019) [facility] 09/13/2019 1336 Local . 02 Electronically signed: . Mis Crowe MD, Pathologist NPI- [id number] . 01 Gross description: . A. Received in formalin labeled "Yong Lisandra, BX small bowel rule out celiac" is a 2.0 x 0.5 x 0.1 cm aggregate of simmons-brown soft tissue fragments. The specimen is submitted entirely in A1. . B. Received in formalin labeled "Lisandra Garcia, BX gastritis rule out H. pylori" is a 2.0 x 0.2 x 0.1 cm aggregate of simmons-brown soft tissue fragments. The specimen is submitted entirely in B1. ([facility]; 09/12/2019) [facility] 09/12/2019 1248 Local . 02 Pathologist provided ICD-10: K31.9, R11.0, R19.7, K29.70 . 02 CPT . 333049, [id number], [id number] Specimen Comment: A courtesy copy of this report has been sent to [phone] [place] [address] PATHOLOGY RPT PROCEDURE Name: BRODERICK GARCIADRA Room #: 410-P ADM IN M.R.#: [id number] Admission: 09/07/19 Date of : 37 Discharge: Report #: [id number] Path Case #: [id number] Specimen Comment: Report sent to DR CAVAZOS Performed at: [address], [place], [place] [id number] MD Peng Vee MD Phone: [phone] Performed at: [address] [id number] MD Mis Crowe MD Phone: [phone]
--- NOTE | 2019-09-13 17:30 | NUR ---
ASSUMED PT CARE AT 0700. A&OX4. ABLE TO VOICE HER NEEDS. REASSESSMENT PER CHART. PT C/O BACK PAIN 02/27, PRN PAIN MEDS GIVEN TWICE OXYCODON AND TYLENOL TOGETHER. DISCUSSED ABOUT CARE PLAN FOR TODAY AND ENCOURAGED PT TO GET UP. OT CAME, WORKED PT AND PHYSICAL THERAPIST GOT TO ON RECLINER. PT TOLERATED FOR WHILE AND REQUESTED TO GO TO BED. C/O NAUSEA AT LUNCH TIME. GAVE PRN IV ZOFRAN AND XANAX PRN. ENCOURAGED PT TO EAT AND GET STRONGER. PT DIDN'T LIKE PUREED DIET AND WANTS TO BE ON ENSURE. ORDERS OBTAINED. PT ABLE TO ATE ALL HER DINNER TRAY. DRANK 100% ENSURE. DENIES NAUSEA. SHE SAID SHE LIKES THE DIET SHE IS ON NOW. IV INTACT IN L AC WAS PATENT PT IS ON 5OML/HR NS SCHEDULE. MAG 1.3 YESTERDAY, SUPPLEMENT GIVEN PER NIGHT RN REPORT. MAG 1.[address] CASH ANOTHER BAG OF MAG GIVEN. WILL RECHECK AGAIN TOMORROW. DIMAS IN PLACE HAD 250CC DARK BOB THIS SHIFT. ENCOURAGED PT TO DRINK MORE. FALL PRECAUTION IN PLACE. CHECK FREQUENTLY FOR NEEDS AND SAFETY. WILL CONTINUE TO MONITOR.
[2019-09-13 19:50] VITALS: BP 132/73
--- NOTE | 2019-09-14 04:36 | NUR ---
Assumed pt care at 1900. Pt is A/OX4,VSS,resting in bed throughout the night and refused to be repositioned stating she's comfortable on her back. C/o pain to lower back medicated per EMAR with relief reported. Bond patent draining yellow urine,PO inatke encouraged w/o much success. Pt's IV infiltrated at beginning of shift,reinserted on RAC with one attempt and IVF restarted. Fall precautions in place,calls approp. Will continue to monitor pt.
[2019-09-14 05:17] LABS: HEMATOCRIT 35.3 % (37.0-47.0); HEMOGLOBIN 11.6 gm/dL (12.0-15.0); MCH 29.3 pg (26.0-34.0); MCHC 32.8 g/dL (28.0-37.0); MCV 89.5 fL (80.0-100.0); RBC 3.94 mil/uL (4.20-5.00); RDW 14.1 % (10.5-14.5); WBC 7.8 thou/uL (4.0-11.0)
[2019-09-14 05:36] LABS: CALCIUM 8.7 mg/dL (8.5-10.1); CREATININE 0.9 mg/dL (0.6-1.0); MAGNESIUM 1.7 mg/dL (1.8-2.4); POTASSIUM 3.9 mmol/L (3.5-5.1)
[2019-09-14 07:30] VITALS: BP 159/84
--- NOTE | 2019-09-14 13:15 | NUR ---
DANIEL reviewed chart and spoke with nursing and attending physician. Pt is progressing towards goals for discharge. Discharge to post-acute facility is anticipated for tomorrow. DANIEL met with pt at bedside to provide update and notify of accepting SNFs: [facility], [facility]. Pt states she prefers [facility] due to location. DANIEL received call from [facility] requesting update on choice of facility. [facility] and [facility] have both submitted for insurance authorization. Nahomi updated regarding discharge timeframe. Nahomi to submit info to the medical accounting clerk for SNF approval. [facility] will need to cancel their SNF request. DANIEL attempted to call [facility] ([phone]). No answer or option to leave a voice message. DANIEL will continue to call. DANIEL is following to assist as needed with discharge planning.
[2019-09-14 16:26] VITALS: BP 144/92
--- NOTE | 2019-09-14 20:14 | NUR ---
ASSUMED CARE OF PATIENT AT 0715, PATIENT ALERT AND ORIENTED X 4. UP WITH MOD. ASSIST X2 TO CHAIR OR BEDSIDE COMMODE. PATIENT HAVING LOOSE STOOLS, THIS RN NOTIFIED DR CASH AND GI/ANDI/MANAGER STORY ORDER IN TO COLLECT C-DIFF, SPECIMEN COLLECTED AND SENT TO THE LAB, ISOLATION CART ORDERED. PATIENT C/O PAIN WITH BACK AND HEADACHE, RECEIVED OXYCODONE 1 TABLET X 2 THIS SHIFT. LDOCAINE PATCH APPLIED TO BACK AREA THIS AM. PATIENT HAS RIGHT AC IV WITH NS AT 50CC/HR. SHE RECEIVED MAGNESIUM IVPB X 1 THIS SHIFT, MAG LEVEL 1.7. WILL CONTINUE TO MONITOR.
[2019-09-14 20:35] VITALS: BP 129/80
[2019-09-15 04:11] LABS: CALCIUM 8.6 mg/dL (8.5-10.1); CREATININE 0.7 mg/dL (0.6-1.0); MAGNESIUM 1.7 mg/dL (1.8-2.4); POTASSIUM 3.7 mmol/L (3.5-5.1)
--- NOTE | 2019-09-15 04:18 | NUR ---
Assumed pt care at 1900. A/OX4, VSS. Up with assist of 1 GB/RW,weak gait. C/o back pain/headache,medicated per EMAR with relief reported. Pt encouraged to reposition while in bed but doesn't want to states she's comfortable on her back. Pt had diarrhea several times yesterday, medicated with Imodium at HS w/o any further diarrhea observed at this time. Bond patent draining adequate yellow urine. IVF infusing on RAC w/o problems. Pt placed on special contact isolation per protocol;pending c-diff results. Fall precautions in place,calls approp. Will continue to monitor pt.
[2019-09-15 04:47] LABS: HEMATOCRIT 32.9 % (37.0-47.0); HEMOGLOBIN 10.8 gm/dL (12.0-15.0); MCH 29.6 pg (26.0-34.0); MCHC 32.8 g/dL (28.0-37.0); MCV 90.1 fL (80.0-100.0); RBC 3.65 mil/uL (4.20-5.00); RDW 13.7 % (10.5-14.5); WBC 7.9 thou/uL (4.0-11.0)
[2019-09-15 09:11] VITALS: BP 145/84
[2019-09-15 12:02] VITALS: BP 145/84
[2019-09-15 15:48] VITALS: BP 145/83
--- NOTE | 2019-09-15 17:22 | NUR ---
[facility] still working on insurance auth. Pt with n/v today. Cdiff pending. Discussed with the care team. Dc anticipated in 1-2 days. Will follow.
--- NOTE | 2019-09-15 17:39 | NUR ---
PT IS AOX4, VSS, GENERALIZED PAIN IN BACK IS CONTROLLED WITH ORAL ANALGESIC. PT IS TOLERATING DIET WITHOUT N/V. PT HAD 1 FORMED SOFT BM THIS MORNING. ISOLATION PRECAUTIONS WERE D/C. PT WAS UP TO RECLINER CHAIR FOR 2 HRS PER PHYSICAL THERAPY. PT TAKES ORAL ANTIBIOTIC, AND ALL OF HER MEDICATION WITH APPLESAUCE. PT CALLS APPROPRIATELY, CALL LIGHT/PERSONAL ITEMS IN REACH. WILL CONTINUE TO MONITOR.
[2019-09-15 21:27] VITALS: BP 138/76
--- NOTE | 2019-09-16 04:09 | NUR ---
Assumed pt care at 1900. Pt is A/OX4,VSS. Pt c/o back pain/CELESTIN,insomnia medicated per EMAR with partial relief reported. Pt's son visited at brought her some food which she ate and verbalized reaching satiety. No c/o N/V,or diarrhea so far. Pt encouraged to reposition but refuses,states she's more comfortable on her back. Bond patent draining yellow urine. IVF infusing via RAC w/o problems. Fall precautions in place,call light/personal items within reach. Will continue to monitor pt.
[2019-09-16 05:58] LABS: HEMATOCRIT 32.9 % (37.0-47.0); HEMOGLOBIN 10.7 gm/dL (12.0-15.0); MCH 29.9 pg (26.0-34.0); MCHC 32.7 g/dL (28.0-37.0); MCV 91.7 fL (80.0-100.0); RBC 3.59 mil/uL (4.20-5.00); RDW 14.4 % (10.5-14.5); WBC 6.5 thou/uL (4.0-11.0)
[2019-09-16 06:01] LABS: CALCIUM 8.3 mg/dL (8.5-10.1); CREATININE 0.7 mg/dL (0.6-1.0); MAGNESIUM 1.5 mg/dL (1.8-2.4); POTASSIUM 4.4 mmol/L (3.5-5.1)
[2019-09-16 09:15] VITALS: BP 130/65
[2019-09-16] MEDS ORDERED: LIDOPATCH1 EACH TRANSDERM (12:08)
[2019-09-16] MEDS ORDERED: CIPRO500 MG PO (12:08)
[2019-09-16] MEDS ORDERED: MIRALAX17 GM PO (12:08)
[2019-09-16] MEDS ORDERED: VITAMIN D325 MCG PO (12:08)
[2019-09-16] MEDS ORDERED: METRONIDAZOLE500 M4 PO (12:08)
[2019-09-16] MEDS ORDERED: METOPROLOL SUCC50 MG PO (12:08)
[2019-09-16] MEDS ORDERED: PANTOPRAZOLE SO40 M1 PO (12:08)
[2019-09-16] MEDS ORDERED: FOLIC ACID1 MG PO (12:08)
[2019-09-16] MEDS ORDERED: OXYCODONE HCL 55 MG PO (12:08)
[2019-09-16] MEDS ORDERED: MELATONIN5 M1 PO (12:08)
[2019-09-16] MEDS ORDERED: LOPERAMIDE 2 MG2 M1 PO (12:08)
[2019-09-16] MEDS ORDERED: CARAFATE 1 GM TA1 G1 PO (12:08)
[2019-09-16] MEDS ORDERED: VOLTAREN GEL 1100 G1 TOP (12:08)
[2019-09-16] MEDS ORDERED: SYNTHROID112 MC1 PO (12:08)
[2019-09-16] MEDS ORDERED: Transderm-Scop 1MG/7 TRANSDERM (12:08)
[2019-09-16] MEDS ORDERED: MAGOX 400400 MG PO (13:58)
--- NOTE | 2019-09-16 16:49 | NUR ---
DANIEL reviewed chart and spoke with nursing and attending physician. Pt is progressing towards goals for discharge. Insurance authorization for SNF placement at [facility] is pending. DANIEL spoke with Nahomi at [facility] to provide update. Documentation had mentioned pt would d/c to [facility]. DANIEL clarified that auth is pending with F and there are no plans for [facility]. Order to test for c.diff. Pt is not currently in isolation. Insurance requesting additional OT notes. DANIEL attempted to page the assigned OT. OT does not have a pager. DANIEL contacted therapy technician to request OT note for today. Therapy notes to be faxed to F when available. DANIEL is following to assist as needed with discharge planning.
[2019-09-16 18:15] VITALS: BP 151/83
--- NOTE | 2019-09-16 19:23 | NUR ---
ASSUMED PATIENT CARE AT 0700. PATIENT IS AOX4. PATIENT C/O BACK PAIN AND PRN MEDS WERE GIVEN NEEDED. PATIENT ALSO C/O A HEADACHE AND TYLENOL WAS GIVEN FOR THAT AND IMPROVED. PATIENT DENIES NAUSEA TODAY AND STILL HAS THE NAUSEA PATCH IN PLACE. DIMAS IN PLACE AND PATENT. PATIENT DID HAVE A BETTER APPETITE TODAY AND ATE BREAKFAST AND LUNCH BUT REFUSED TO EAT DINNER, SHE DID DRINK HER SUPPLEMENT. PATIENT TOLERATED MEDS IN APPLESAUCE WELL. PATIENT DID STATE SHE WANTS TO GET STRONGER SO SHE CAN GO HOME. SHE IS WAITING TO GO TO REHAB. FALL PRECAUTIONS ARE IN PLACE, CALL LIGHT WITHIN REACH, AND PATIENT WILL CALL FOR HELP.
--- NOTE | 2019-09-16 20:14 | NUR ---
I AGREE WITH NURSING ASSESSMENT AND NURSING NOTE.
[2019-09-16 20:37] VITALS: BP 146/81
--- NOTE | 2019-09-17 05:02 | NUR ---
ASSUMED CARE OF PATIENT AT APPROX 1930. ASSESSMENT CHARTED. MEDICATIONS GIVEN PER SEP. PATIENT IS A&OX4. VSS. PATIENT C/O PAIN; HEADACHE AND REQUESTS TYLENOL. PRN PAIN ANALGESIC ADMINISTERED PER SEP. PATIENT REQUESTED BEDPAN AND HAD A BM THIS SHIFT; FORMED AND LIGHT BROWN. STOOL SPECIMEN SENT TO LAB. PANDING RESULTS FOR C.DIFF AND OCCULT BLOOD. THOUGHOUT SHIFT PATIENT VOICED PAIN ON BACK AND HEAD AT 8/10 UNCONTROLLED BY MEDS. PATIENT STATES RELAXATION DOES HELP DISTRACT HER. PATIENT C/O METALLIC "NASTY" TASTE IN MOUTH. REQUESTED LEMON PAIUTE-SHOSHONE SODA, VOICED RELIEF. PATIENT REFUSED REPOSITIONING THROUGHOUT NIGHT D/T PAIN BUT REPOSITIONS SELF NEEDED. FAMILY(SON) TO VISIT TOMORROW AND BRING PATIENT FOOD. DIMAS CATHETER INTACT, DRAINING; CATHETER SITE CARE DONE. PATIENT VOICES NO OTHER CONCERNS. PLAN IS TO D/C TO [facility] ONCE CLEARED BY [employer]. WILL CONTINUE TO MONITOR AND FOLLOW POC
--- NOTE | 2019-09-17 05:15 | NUR ---
THIS NURSE AGREES WITH ASSESSMENT AND NOTE BY VETERINARY SCIENCE TEACHER ON THIS PATIENT.
[2019-09-17 06:10] LABS: HEMATOCRIT 32.5 % (37.0-47.0); HEMOGLOBIN 10.8 gm/dL (12.0-15.0); MCH 30.2 pg (26.0-34.0); MCHC 33.3 g/dL (28.0-37.0); MCV 90.6 fL (80.0-100.0); RBC 3.58 mil/uL (4.20-5.00); RDW 14.4 % (10.5-14.5); WBC 8.6 thou/uL (4.0-11.0)
[2019-09-17 06:23] LABS: CREATININE 0.8 mg/dL (0.6-1.0); MAGNESIUM 1.4 mg/dL (1.8-2.4); POTASSIUM 3.9 mmol/L (3.5-5.1)
[2019-09-17 07:29] VITALS: BP 162/83
[2019-09-17 09:13] VITALS: BP 141/77
[2019-09-17] MEDS ORDERED: ZOFRAN 4 MG ORAL4 MG PO (12:05)
--- NOTE | 2019-09-17 15:32 | NUR ---
ASSUMED PT CARE THIS AM. AXOX3. PO ATB D/C PER MD ORDER. C/O NAUSEA. MEDS GIVEN PER MD ORDER. TOLERATED BREAKFAST 75%. DEC LUNCH ONLY TOLERATED ENSURE AND FRUIT CUP. OK PER ATTENDING AND MISSY MATUTE NP TO D/C BACK TO [facility]. REPORT CALLED TO ASHOK AT [facility]. VSS. SON UPDATED ON D/C PLANNING. LEFT ON W/C. IV REMOVED AND ALL BELONGINGS SENT WITH PT.
--- NOTE | 2019-09-17 16:21 | NUR ---
DISCHARGE NOTE: DANIEL reviewed chart and spoke with nursing and attending physician. Pt is medically stable for discharge to [facility]. Awaiting insurance authorization. OT/PT notes sent to facility this morning. DANIEL met with pt at bedside to discuss discharge plan. Pt is agreeable with discharge plan. principal planner faxed discharge orders/summary to facility and notified family. Pt will need stretcher van transportation. Chart copy requested. DANIEL is following to assist as needed with discharge planning.
== END 2019-09-17 15:36 | DRG 391 ==
LOC: ER 14:34 → 4N 20:26 → 2N 20:26 → EROBS 20:26 → 2N 22:06 → ENTRNSPT 09-09 14:23 → CMPTRNSPT 09-09 14:42 → DELTRNSPT 09-09 15:28 → 2N 09-09 16:50 → 4N 09-11 14:39
PROVIDERS: Emergency Medicine; Internal Medicine; Nurse Practitioner; ADMIT Internal Medicine
PROC: 0DB68ZX Excision of Stomach, Via Natural or Artificial Opening Endoscopic, Diagnostic (ICD-10-PCS; principal; 2019-09-07)
DX: K29.70 Gastritis, unspecified, without bleeding (principal); E43 Unspecified severe protein-calorie malnutrition; N17.9 Acute kidney failure, unspecified; E87.1 Hypo-osmolality and hyponatremia; K52.9 Noninfective gastroenteritis and colitis, unspecified; F41.9 Anxiety disorder, unspecified; E87.6 Hypokalemia; E86.0 Dehydration; D72.829 Elevated white blood cell count, unspecified; E03.9 Hypothyroidism, unspecified; K21.9 Gastro-esophageal reflux disease without esophagitis; Z66 Do not resuscitate; K57.10 Diverticulosis of small intestine without perforation or abscess without bleeding; R33.9 Retention of urine, unspecified; K91.1 Postgastric surgery syndromes; I12.9 Hypertensive chronic kidney disease with stage 1 through stage 4 chronic kidney disease, or unspecified chronic kidney disease; Y83.8 Other surgical procedures as the cause of abnormal reaction of the patient, or of later complication, without mention of misadventure at the time of the procedure; Y82.8 Other medical devices associated with adverse incidents; N18.9 Chronic kidney disease, unspecified; G47.00 Insomnia, unspecified; E55.9 Vitamin D deficiency, unspecified; E53.8 Deficiency of other specified B group vitamins; R63.4 Abnormal weight loss; Z87.11 Personal history of peptic ulcer disease; Z88.0 Allergy status to penicillin; Z98.49 Cataract extraction status, unspecified eye; Z90.710 Acquired absence of both cervix and uterus; Z90.49 Acquired absence of other specified parts of digestive tract; Z90.722 Acquired absence of ovaries, bilateral; Z80.0 Family history of malignant neoplasm of digestive organs; Z68.22 Body mass index [BMI] 22.0-22.9, adult
CPT/HCPCS: 10081; 10790; 10797; 62110; 62900; 70005

== ENCOUNTER 2019-09-21 14:45 | Emergency (ER) | payer OTHER ==
[~2019-09-21] VITALS: Ht 157.5 cm; Wt 51.3 kg
[~2019-09-21 14:45] MED LIST changes: +CARAFATE 1 GM TA1 G1 PO; +DULOXETINE HCL60 MG PO; +FOLIC ACID1 MG PO; +LIDOPATCH1 EACH TRANSDERM; +LISINOPRIL2.5 MG PO; +LOPERAMIDE 2 MG2 M1 PO; +MAGOX 400400 MG PO; +MELATONIN5 M1 PO; +MIRALAX17 GM PO; +OXYCODONE HCL 55 MG PO; +PANTOPRAZOLE SO40 M1 PO; +SYNTHROID112 MC1 PO; +SYNTHROID125 MC1 PO; +TOPROL XL100 MG PO; +Transderm-Scop 1MG/7 TRANSDERM; +VITAMIN D325 MCG PO; +VOLTAREN GEL 1100 G1 TOP; +XANAX 0.5 MG0.5 MG PO; +ZOFRAN 4 MG ORAL4 MG PO
[2019-09-21 15:21] LABS: ABSOLUTE NEUTROPHILS 5.3 thou/uL (1.4-8.2); BASOPHILS 0.7 % (0.0-2.0); EOSINOPHILS 2.8 % (0.0-3.0); HEMATOCRIT 32.4 % (37.0-47.0); HEMOGLOBIN 10.7 gm/dL (12.0-15.0); LYMPHOCYTES 19.7 % (24.0-44.0); MCH 29.9 pg (26.0-34.0); MCV 90.6 fL (80.0-100.0); MONOCYTES 7.9 % (1.0-8.0); PLATELET COUNT 201 thou/uL (150-400); POLYS 68.9 % (36.0-66.0); RBC 3.58 mil/uL (4.20-5.00); WBC 7.7 thou/uL (4.0-11.0)
[2019-09-21] MEDS ORDERED: ROXICODONE5 M2 PO (15:24)
[2019-09-21] MEDS ORDERED: TRANSDERM-SCOP1 EACH TRANSDERM (15:25)
[2019-09-21 15:39] LABS: CALCIUM 9.1 mg/dL (8.5-10.1); CREATININE 0.8 mg/dL (0.6-1.0); MAGNESIUM 1.4 mg/dL (1.8-2.4); POTASSIUM 3.5 mmol/L (3.5-5.1)
[2019-09-21 16:48] VITALS: BP 141/86
--- NOTE | 2019-09-22 08:09 | EKG ---
[facility] [place] [address] ELECTROCARDIOGRAM REPORT Name: NAIMA GARCIA Room #: DEP [facility]#: [id number] Admission: 09/21/19 Attend Phys: Discharge: 09/21/19 Date of : 37 Report #: [id number] THIS REPORT FOR: cc: EDY OTERO Physician not on staff Cortes Palacio MD [facility] THIS REPORT FOR: //name// [facility] ED Test Date: 2019-09-21 Test Time: 14:47:09 Pat Name: NAIMA GARCIA Department: Room: Gender: F Vice President Of Development: [place] : 1935 Requested By: Anuj Sky Order Number: [id number] MD: Cortes Palacio Measurements Intervals [place] Rate: 104 P: 44 [place]: 179 QRS: 27 QRSD: 93 T: 61 QT: 357 QTc: 470 Interpretive Statements Sinus tachycardia Otherwise normal Compared to ECG 09/07/2019 20:18:32 ST and T wave abnormality is no longer present Electronically Signed On 09-22-2019 8:08:37 GAS SCRUBBER OPERATOR by Cortes Palacio [email or web address] <ELECTRONICALLY SIGNED> By: Cortes Palacio MD, [facility] 09/22/19 0808 [id number] 1447 Cortes Palacio MD, [facility] /EPI
== END 2019-09-21 16:50 | disposition home or self-care (01) ==
LOC: ER 14:45
PROVIDERS: Emergency Medicine
DX: E83.42 Hypomagnesemia (principal); R00.0 Tachycardia, unspecified; R07.89 Other chest pain; R05 Cough; M79.89 Other specified soft tissue disorders; I10 Essential (primary) hypertension; E03.9 Hypothyroidism, unspecified; K21.9 Gastro-esophageal reflux disease without esophagitis; G89.29 Other chronic pain; Z90.49 Acquired absence of other specified parts of digestive tract; Z79.899 Other long term (current) drug therapy; Z88.0 Allergy status to penicillin

== ENCOUNTER 2019-11-16 12:36 | Emergency (ER) | payer OTHER ==
[~2019-11-16] VITALS: Ht 157.5 cm; Wt 49.9 kg
[~2019-11-16 12:36] MED LIST changes: +ROXICODONE5 M2 PO; +TRANSDERM-SCOP1 EACH TRANSDERM
--- NOTE | 2019-11-16 14:09 | EKG ---
[facility] [place] [address] ELECTROCARDIOGRAM REPORT Name: NAIMA GARCIA Room #: REG [facility]#: [id number] Admission: 11/16/19 Attend Phys: Discharge: Date of : 37 Report #: [id number] THIS REPORT FOR: cc: CONSTANTINO - Tiffanie family physician/PCP CONSTANTINO - No family physician/PCP Chino Webster MD ~ THIS REPORT FOR: //name// [facility] ED Test Date: 2019-11-16 Test Time: 13:06:43 Pat Name: NAIMA GARCIA Department: Room: Gender: Dispatch Machine Runner: [facility] : 1935 Requested By: Stone Rodriguez Order Number: [id number] MD: Chino Webster Measurements Intervals [place] Rate: 52 P: 16 DE: 177 QRS: 25 QRSD: 99 T: 41 QT: 477 QTc: 444 Interpretive Statements Sinus rhythm Compared to ECG 09/21/2019 14:47:09 Sinus tachycardia no longer present Electronically Signed On 11-16-2019 14:08:03 CDT by Chino Webster [email or web address] <ELECTRONICALLY SIGNED> By: Chino Webster MD 11/16/19 1408 1306 1306 Chino Webster MD /[facility]
[2019-11-16 14:59] LABS: ABSOLUTE NEUTROPHILS 4.6 thou/uL (1.4-8.2); BASOPHILS 0.8 % (0.0-2.0); HEMATOCRIT 39.3 % (37.0-47.0); HEMOGLOBIN 12.8 gm/dL (12.0-15.0); LYMPHOCYTES 19.4 % (24.0-44.0); MCH 29.9 pg (26.0-34.0); MCHC 32.6 g/dL (28.0-37.0); MCV 91.7 fL (80.0-100.0); MONOCYTES 7.7 % (1.0-8.0); PLATELET COUNT 281 thou/uL (150-400); POLYS 70.1 % (36.0-66.0); RBC 4.29 mil/uL (4.20-5.00); RDW 15.5 % (10.5-14.5); WBC 6.6 thou/uL (4.0-11.0)
[2019-11-16 15:09] LABS: CALCIUM 9.9 mg/dL (8.5-10.1); CREATININE 1.1 mg/dL (0.6-1.0); POTASSIUM 3.6 mmol/L (3.5-5.1)
[2019-11-16 15:15] LABS: ALBUMIN 3.2 g/dL (3.4-5.0); TOTAL BILIRUBIN 0.4 mg/dL (<0.1-1.0); TOTAL PROTEIN 6.1 g/dL (6.4-8.2)
[2019-11-16 15:31] LABS: URINE BILIRUBIN NEGATIVE (Negative); URINE BLOOD NEGATIVE (Negative); URINE CLARITY CLEAR; URINE COLOR YELLOW; URINE GLUCOSE-RANDOM* NEGATIVE (Negative); URINE KETONES NEGATIVE (Negative); URINE LEUKOCYTES-REFLEX NEGATIVE (Negative); URINE NITRITE-REFLEX NEGATIVE (Negative); URINE PROTEIN (DIPSTICK) NEGATIVE (Negative); URINE SPECIFIC GRAVITY 1.015 (1.005-1.035); URINE UROBILINOGEN 0.2 E.U./dl (0.2-1.0)
[2019-11-16] MEDS ORDERED: LIDOCAINE PAIN1 EACH TRANSDERM (15:52)
[2019-11-16] MEDS ORDERED: NAPROSYN500 MG PO (15:52)
[2019-11-16 16:21] VITALS: BP 157/76
== END 2019-11-16 16:22 | disposition home or self-care (01) ==
LOC: ER 12:36
PROVIDERS: Physician Assistant
DX: R07.81 Pleurodynia (principal); M25.552 Pain in left hip; I10 Essential (primary) hypertension; E03.9 Hypothyroidism, unspecified; K21.9 Gastro-esophageal reflux disease without esophagitis; F17.210 Nicotine dependence, cigarettes, uncomplicated; Z90.49 Acquired absence of other specified parts of digestive tract; Z90.710 Acquired absence of both cervix and uterus; Z79.899 Other long term (current) drug therapy; Z88.0 Allergy status to penicillin; W18.39XA Other fall on same level, initial encounter; Y93.89 Activity, other specified; Y92.89 Other specified places as the place of occurrence of the external cause; Y99.8 Other external cause status

== ENCOUNTER 2020-02-14 12:41 | Emergency (ER) | payer OTHER ==
[~2020-02-14] VITALS: Ht 152.4 cm; Wt 50.8 kg
[~2020-02-14 12:41] MED LIST changes: +LIDOCAINE PAIN1 EACH TRANSDERM; +NAPROSYN500 MG PO
[2020-02-14] MEDS ORDERED: REMERON15 M1 PO (14:17)
[2020-02-14 14:54] LABS: CALCIUM 9.1 mg/dL (8.5-10.1); CREATININE 1.1 mg/dL (0.6-1.0); POTASSIUM 4.1 mmol/L (3.5-5.1)
[2020-02-14 15:00] LABS: ALBUMIN 3.1 g/dL (3.4-5.0); TOTAL BILIRUBIN 0.3 mg/dL (0.2-1.0); TOTAL PROTEIN 5.8 g/dL (6.4-8.2)
[2020-02-14 15:33] LABS: URINE BILIRUBIN NEGATIVE (Negative); URINE BLOOD NEGATIVE (Negative); URINE CLARITY CLEAR; URINE COLOR YELLOW; URINE GLUCOSE-RANDOM* NEGATIVE (Negative); URINE KETONES NEGATIVE (Negative); URINE LEUKOCYTES-REFLEX NEGATIVE (Negative); URINE NITRITE-REFLEX NEGATIVE (Negative); URINE PROTEIN (DIPSTICK) NEGATIVE (Negative); URINE UROBILINOGEN 0.2 E.U./dl (0.2-1.0)
[2020-02-14 16:05] LABS: ABSOLUTE NEUTROPHILS 3.7 thou/uL (1.4-8.2); BASOPHILS 0.9 % (0.0-2.0); EOSINOPHILS 2.6 % (0.0-3.0); HEMATOCRIT 35.2 % (37.0-47.0); HEMOGLOBIN 11.6 gm/dL (12.0-15.0); LYMPHOCYTES 30.1 % (24.0-44.0); MCH 29.5 pg (26.0-34.0); MCHC 32.9 g/dL (28.0-37.0); MCV 89.7 fL (80.0-100.0); MONOCYTES 11.5 % (1.0-8.0); PLATELET COUNT 205 thou/uL (150-400); POLYS 54.9 % (36.0-66.0); RBC 3.93 mil/uL (4.20-5.00); RDW 14.7 % (10.5-14.5); WBC 6.8 thou/uL (4.0-11.0)
[2020-02-14] MEDS ORDERED: LIDOCAINE PAIN1 EACH TRANSDERM (17:24)
[2020-02-14 18:26] VITALS: BP 162/66
--- NOTE | 2020-02-15 07:34 | EKG ---
[facility] [place] [address] ELECTROCARDIOGRAM REPORT Name: NAIMA GARCIA Room #: DEP [facility]#: [id number] Admission: 02/14/20 Attend Phys: Discharge: 02/14/20 Date of : 37 Report #: [id number] THIS REPORT FOR: cc: FAM - No family physician/PCP FAM - No family physician/PCP Cortes Palacio MD [facility] THIS REPORT FOR: //name// [facility] ED Test Date: 2020-02-14 Test Time: 13:54:46 Pat Name: NAIMA GARCIA Department: Room: Gender: F Airborne Sensor Specialist: [facility] : 1935 Requested By: Stone Rodriguez Order Number: [id number] MD: Cortes Palacio Measurements Intervals [place] Rate: 57 P: 43 [place]: 189 QRS: 18 QRSD: 103 T: 60 QT: 454 QTc: 442 Interpretive Statements Sinus bradycardia Baseline wander in lead(s) V5 Compared to ECG 11/16/2019 13:06:43 No significant changes Electronically Signed On 02-15-2020 7:34:35 CDT by Cortes Palacio [email or web address] <ELECTRONICALLY SIGNED> By: Cortes Palacio MD, [facility] 02/15/20 0734 1354 1354 Cortes Palacio MD, [facility] /EPI
== END 2020-02-14 17:55 | disposition home or self-care (01) ==
LOC: ER 12:41
PROVIDERS: Physician Assistant
DX: G89.29 Other chronic pain (principal); M54.5 Low back pain; R22.43 Localized swelling, mass and lump, lower limb, bilateral; I10 Essential (primary) hypertension; E03.9 Hypothyroidism, unspecified; K21.9 Gastro-esophageal reflux disease without esophagitis; Z87.891 Personal history of nicotine dependence; Z79.899 Other long term (current) drug therapy; Z90.710 Acquired absence of both cervix and uterus; Z88.0 Allergy status to penicillin

== ENCOUNTER 2020-02-18 00:30 | Emergency (ER) | payer OTHER ==
[~2020-02-18] VITALS: Ht 154.9 cm; Wt 51.7 kg
[~2020-02-18 00:30] MED LIST changes: +REMERON15 M1 PO
[2020-02-18 04:27] VITALS: BP 150/88
== END 2020-02-18 05:33 | disposition home or self-care (01) ==
LOC: ER 00:30
DX: G89.29 Other chronic pain (principal); M54.6 Pain in thoracic spine; R60.0 Localized edema; I10 Essential (primary) hypertension; E03.9 Hypothyroidism, unspecified; Z87.891 Personal history of nicotine dependence; Z88.0 Allergy status to penicillin; Z79.899 Other long term (current) drug therapy; Z90.49 Acquired absence of other specified parts of digestive tract

== ENCOUNTER 2020-12-05 12:24 | Inpatient (IN) | payer OTHER ==
[~2020-12-05] VITALS: Ht 157.5 cm; Wt 53.5 kg
[2020-12-05 12:25] VITALS: BP 155/76
[2020-12-05 12:59] LABS: ABSOLUTE NEUTROPHILS 6.2 thou/uL (1.4-8.2); BASOPHILS 0.7 % (0.0-2.0); EOSINOPHILS 2.4 % (0.0-3.0); HEMATOCRIT 40.7 % (37.0-47.0); HEMOGLOBIN 13.4 gm/dL (12.0-15.0); MCH 28.6 pg (26.0-34.0); MCV 86.8 fL (80.0-100.0); MONOCYTES 7.1 % (1.0-8.0); PLATELET COUNT 262 thou/uL (150-400); POLYS 71.8 % (36.0-66.0); RBC 4.69 mil/uL (4.20-5.00); WBC 8.6 thou/uL (4.0-11.0)
--- NOTE | 2020-12-05 13:09 | EKG ---
[address] [place] [address] ELECTROCARDIOGRAM REPORT Name: NAIMA GARCIA Room #: [facility]..#: [id number] Admission: Attend Phys: Discharge: Date of : 37 Report #: [id number] [facility] ED Test Date: 2020-12-05 Test Time: 12:58:20 Pat Name: NAIMA GARCIA Department: Room: Gender: F Video Operator: deb : 1935 Requested By: Yao Castañeda Order Number: [id number] MD: Chino Webster Measurements Intervals [place] Rate: 57 P: 18 [place]: 192 QRS: 6 QRSD: 104 T: 50 QT: 460 QTc: 448 Interpretive Statements Sinus rhythm Probable left atrial enlargement Left ventricular hypertrophy Compared to ECG 02/14/2020 13:54:46 Left ventricular hypertrophy now present Sinus bradycardia no longer present Electronically Signed On 12-05-2020 13:09:32 CDT by Chino Webster [email or web address] <ELECTRONICALLY SIGNED> By: Chino Webster MD 12/05/20 1309 [id number] 1258 MD CHAD Castellanos
[2020-12-05 13:15] LABS: ANION GAP 8 mmol/L (7-16); BUN 16 mg/dL (7-18); CALCIUM 9.8 mg/dL (8.5-10.1); CHLORIDE 92 mmol/L (98-107); CO2 28 mmol/L (21-32); CREATININE 1.4 mg/dL (0.6-1.0); GLUCOSE 98 mg/dL (74-106); SODIUM 128 mmol/L (136-145)
--- NOTE | 2020-12-05 13:18 | NUR ---
CASH VILLEGAS [id number]
[2020-12-05 13:24] LABS: TROPONIN-I <0.06 ng/mL (<0.06)
[2020-12-05 15:26] VITALS: BP 182/75
[2020-12-05 15:32] LABS: URINE BILIRUBIN NEGATIVE (Negative); URINE BLOOD NEGATIVE (Negative); URINE CLARITY CLEAR; URINE COLOR YELLOW; URINE GLUCOSE-RANDOM* NEGATIVE (Negative); URINE KETONES NEGATIVE (Negative); URINE LEUKOCYTES-REFLEX NEGATIVE (Negative); URINE NITRITE-REFLEX NEGATIVE (Negative); URINE PROTEIN (DIPSTICK) NEGATIVE (Negative); URINE UROBILINOGEN 0.2 E.U./dl (0.2-1.0)
[2020-12-05 18:04] VITALS: BP 154/80
--- NOTE | 2020-12-05 19:01 | NUR ---
PATIENT ADMIT TO UNIT AT 1750 FROM ER. A/0 X4. GENERLIZED WEAKNESS. UP TO BSC. C/O BCAK PAIN. NO DISTRESS NOTED. WILL KEEP MONITOR.
[2020-12-05 19:31] VITALS: BP 149/77
[2020-12-05] MEDS ORDERED: BACLOFEN5 MG PO (21:36)
[2020-12-05] MEDS ORDERED: PHENERGAN 25 MG25 M1 PO (21:36)
--- NOTE | 2020-12-06 00:40 | NUR ---
DURING 2099 ASSESSMENT PT STILL HAS NOT HAD A BM AFTER GIVEN LACTULOSE. BOWEL SOUNDS ARE HEARD, AND PT IS HAVING FLATULENCE. GAVE MIRALAX AND DOCUSATE TO HELP WITH CONSTIPATION. AT 2430 PT HAD VERY LARGE, ROCK HARD BM. PT STATES SHE IS FEELING A LITTLE BETTER NOW.
[2020-12-06 05:16] VITALS: BP 133/77
[2020-12-06 05:22] LABS: HEMOGLOBIN 12.2 gm/dL (12.0-15.0); MCH 28.8 pg (26.0-34.0); MCHC 32.8 g/dL (28.0-37.0); MCV 87.7 fL (80.0-100.0); RBC 4.22 mil/uL (4.20-5.00); RDW 14.8 % (10.5-14.5); WBC 8.1 thou/uL (4.0-11.0)
[2020-12-06 05:55] LABS: CALCIUM 8.9 mg/dL (8.5-10.1); CREATININE 1.1 mg/dL (0.6-1.0); POTASSIUM 3.3 mmol/L (3.5-5.1)
[2020-12-06 08:09] VITALS: BP 150/75
--- NOTE | 2020-12-06 09:38 | NUR ---
Nutrition: assessed due to consult received related to constipation. Pt admitted post fall, hyponatremia, hypokalemia, back pain. Hx chronic pack pain and narcotic use. No BM x 7 days with decreased oral intake. No weight loss. Concern for SBO. Allowing Clear liquids and pt tolerating. Had BM this am. Aggressive stool regimen ordered. Reviewed adequate fiber/fluid intake to prevent constipation. pt voices decreased fluid intake recently but drinks a smoothie every morning at home. Holding narcotics at present. Follow for timely diet advance but consider pt low nutrition risk at present.
--- NOTE | 2020-12-06 13:40 | NUR ---
ASSESSMENT: CM REVIEWED CHART AND MET WITH PATIENT. PT WAS ADMITTED DUE TO POSSIBLE SBO DUE TO SEVERE CONSTIPATION WITH NO BM FOR A WEEK AND ALSO FALLING AT HOME. PTS XRAYS WERE UNREMARKABLE. PT CURRENTLY LIVES IN A HOUSE WITH HER SON KATHLEEN AND A FAMILY FRIEND. PT HAS ABOUT 5 STEPS INSIDE THE HOME SHE HAS TO USE TO GET TO HER BEDROOM. PT REPORTS SHE AMBULATES INDEPENDENTLY BUT DOES USE A CANE OR WALKER WHEN FEELING WEAK. PT REPORTS THAT SHE HAS A GRAB BAR IN THE SHOWER WELL A SHOWER CHAIR. PT IS SCHEDULED TO MOVE INTO [facility] THE FIRST WEEK OF DECEMBER SHE STATES. PT HAS BEEN TO [facility] IN THE PAST AND HAS HAD [facility]. PHYSICAL THERAPY WORKED WITH PATIENT AND RECOMMENDING HH. CM DISCUSSED WITH PATIENT AND SHE REPORTS SHE WOULD LIKE TO USE [facility] AGAIN. CM FAXED REFERRAL TO [facility] AND AWAITING INPUT. CM ATTEMPTED TO REACH PTS SON BUT UNABLE TO AT THIS TIME. CM WILL CONTINUE TO FOLLOW TO ASSIST NEEDED.
--- NOTE | 2020-12-06 14:18 | NUR ---
CARE ASSUMED THIS, PT ALERT AND ORIENTED X4, DENIES NAUSEA AND VOMITTING. PT COMPLAINS OF BACK PAIN, DR. EDMONDSON MADE AWARE AND STATED WILL PUT ORDERS IN. KPAD ORDERED PER DR. EDMNODSON, KPAD PLACED IN A PILLOW CASE, PT STATED PAIN SEEMS A LITTLE BETTER. HAD A SOFT BM TODAY. UP WITH 1 ASSIST TO BATHROOM. FALL PRECAUTIONS IN PLACE. WILL CONTINUE TO MONITOR
[2020-12-06 15:08] VITALS: BP 150/75
[2020-12-06 15:36] VITALS: BP 155/77
[2020-12-06 19:09] VITALS: BP 169/84
--- NOTE | 2020-12-06 20:38 | NUR ---
PT RESTING IN BED. BP ELEVATED REPORTED BACK DISCOMFORT AND PRN PROVIDED. PT DECLINED HS SNACK. PT VERBALIZED TO CALL FOR ASSISTANCE. PT VERBALIZED PLAN FOR DC IN AM.
[2020-12-06 21:03] VITALS: BP 165/84
[2020-12-07 03:54] VITALS: BP 177/98
--- NOTE | 2020-12-07 04:22 | NUR ---
CONTACTED PROVIDER RADIO MECHANIC APPRENTICE RE ELEVATED BP. OK TO GIVE AM DOSE METOPROLOL NOW.
[2020-12-07 05:45] VITALS: BP 170/90
--- NOTE | 2020-12-07 05:48 | NUR ---
BP REMAINS ELEVATED, TOOK MANUAL 170/90. PROVIDER NOTIFIED ORDER FOR PRN IV HTN MED. PT WARM TO THE TOUCH TWO BLANKETS REMOVED AND HEATING PAD TURNED OFF.
[2020-12-07 06:05] LABS: CALCIUM 9.2 mg/dL (8.5-10.1); CREATININE 1.1 mg/dL (0.6-1.0); MAGNESIUM 1.4 mg/dL (1.8-2.4); POTASSIUM 3.9 mmol/L (3.5-5.1)
--- NOTE | 2020-12-07 07:02 | NUR ---
PT REPORTING DIFFICULTY URINATING WITH BLADDER SCAN 249. PT C/O LEG PAIN, PT SAYS SHE USES DSMO FROM THE FEED STORE THAT IS USED ON [address] FOR PAIN. PT REQUESTING DR BE CALLED FOR PAIN MED. DAY NURSE PROVIDED REPORT AND SHE STATED SHE WILL CALL DR AND FOLLOW UP REGARDING ORDERS.
[2020-12-07 07:58] VITALS: BP 153/92
--- NOTE | 2020-12-07 10:53 | NUR ---
ASSUMED CARE THIS AM, PT COMPLAINING OF SEVERE LEG PAIN, 04/29. DR. SARAHY MCLEAN, PUT IN ORDERS FOR PAIN MED. PT CONTINUES TO BE ON ROOM AIR. UP WITH 1 ASSIST TO COMMODE. DENIES ANY NEEDS. FALL PRECAUTIONS IN PLACE. WILL CONTTINUE TO MONITOR
--- NOTE | 2020-12-07 13:07 | NUR ---
DANIEL reviewed chart and spoke with nursing and attending physician. Pt's BP was elevated this morning. Pt is not ready to discharge home today. Discharge is anticipated for tomorrow. Consult for [facility] ordered today. DANIEL met with pt at bedside to discuss discharge plan. Pt states that she prefers to return home with . Pt does not want to go to [facility] or anywhere for post-acute care. Pt will be moving into [facility] next month. DANIEL spoke with Darrian at [facility] to provide update and notify of anticipated discharge tomorrow. DANIEL notified [facility] rehabilitation liaison of discharge plan. Pt's family will be able to provide transportation home tomorrow. DANIEL is following to assist as needed with discharge planning.
[2020-12-07 15:47] VITALS: BP 166/88
[2020-12-07 19:55] VITALS: BP 163/95
[2020-12-08 04:00] VITALS: BP 175/89
--- NOTE | 2020-12-08 04:14 | NUR ---
sleeping tonight after taking her bedtime medications. this am stated that her pain level is controlled. she is aware of plan for discharge todday, and she stated that the extermination inspector plan is for her to transfer to [facility] assisted living during the month of December. careplan reviewed, no discharge concerns voiced.
[2020-12-08 05:37] LABS: CALCIUM 9.4 mg/dL (8.5-10.1); MAGNESIUM 1.9 mg/dL (1.8-2.4); POTASSIUM 3.7 mmol/L (3.5-5.1)
[2020-12-08 06:00] VITALS: BP 154/75
[2020-12-08 07:28] VITALS: BP 150/92
--- NOTE | 2020-12-08 12:44 | NUR ---
DANIEL reviewed chart and spoke with nursing and attending physician. Pt is not ready for discharge today. Pt is on IV BP and pain meds. MRI spine ordered today. Pt also with visual changes. No weekend discharge planned. DANIEL spoke with Darrian in intake at [facility] to provide update. Plan is for pt to discharge back home with HH when medically stable. DANIEL is following to assist as needed with discharge planning.
--- NOTE | 2020-12-08 12:52 | NUR ---
CARE ASSUMMED THIS AM, PT ALERT AND ORIENTED X4, THIS AM PT WAS COMPLAINING OF VISION CHANGES, DR. OLMOS MADE AWARE, ORDERS FOR NEURO CONSULT AND HEAD CT IN. PAIN MED GIVEN FOR BACK PAIN. PT STATED SHE HAD A BM WHILE DOWN FOR MRI. FALL PRECAUTION IN PLACE. PT IS EATING LUNCH DAFNE, DENIES ANY NEEDS WILL CONTINUE TO MONITOR.
[2020-12-08 15:11] VITALS: BP 152/87
[2020-12-08 19:30] VITALS: BP 146/81
[2020-12-09 04:06] VITALS: BP 153/84
--- NOTE | 2020-12-09 04:19 | NUR ---
Pt. rested quietly at intervals during the night when checked on during frequent rounds. She c/o generalized pain all over. Pt. medicated for pain with some relief noted. She also wanted a xanax for anxiety (see emar). Bed alarm is on.
[2020-12-09 08:22] VITALS: BP 156/84
[2020-12-09 17:34] VITALS: BP 149/85
[2020-12-09 19:30] VITALS: BP 138/68
--- NOTE | 2020-12-09 19:45 | NUR ---
RN ASSUMED PT'S CARE AT 0700AM, PT IS A&OX3 ( PERSON, PLACE AND TIME), PT'S VS ARE STABLE, PT HAS WALK IN HALLWAY WITH ASSIST.
[2020-12-10 03:45] VITALS: BP 156/83
--- NOTE | 2020-12-10 04:48 | NUR ---
SLEPT MOST OF SHIFT. STATES SHE DRANK THE ORANGE ICEE LAST NOC AND HER STOMACH HAS BEEN UPSET SINCE. ZOFRAN GIVEN X2 FOR COMFORT. PAIN MEDICATION PRN FOR DISCOMFORT NEEDED. SLEEPING AT PRESENT TIME. WORKING ON GOALS AND PLAN OF CARE FOR NOC. CONTINUE TO ASSES CLOSELY.
[2020-12-10 07:04] VITALS: BP 154/87
[2020-12-10 14:30] VITALS: BP 187/107
[2020-12-10 17:00] VITALS: BP 166/89
--- NOTE | 2020-12-10 18:37 | NUR ---
RN ASSUMED PT'S CARE AT 0700AM, PT IS A&OX3 , PT'S WEAKNESS AND PAIN HAVE IMPROVED, PT'S VS ARE STABLE, BUT PT STILL NEEDS HELP WITH MEALS AND BSC , PT MAY DC TO HOME WITH HOME HEALTH TOMORROW.
[2020-12-10 18:57] VITALS: BP 152/78
[2020-12-11 03:30] VITALS: BP 159/88
--- NOTE | 2020-12-11 05:19 | NUR ---
Pt. slept intermittently during the night. Reported blurry vision on left eye.C/O left leg pain , hydrocodone given with some help. No nausea or vomiting. Incontinent of bowel, wears brief.Up with assist to commode and had loose bm x2.
[2020-12-11 07:10] VITALS: BP 167/86
[2020-12-11] MEDS ORDERED: FELODIPINE 5 MG5 M1 PO (09:42)
[2020-12-11] MEDS ORDERED: GABAPENTIN 100100 MG PO (09:43)
[2020-12-11] MEDS ORDERED: TOPAMAX 25 MG T25 M1 PO (09:43)
[2020-12-11] MEDS ORDERED: LACTULOSE20 GM/30 M PO (09:43)
[2020-12-11] MEDS ORDERED: SYNTHROID125 MC1 PO (09:44)
[2020-12-11 10:29] VITALS: BP 154/85
--- NOTE | 2020-12-11 11:46 | NUR ---
DISCHARGE NOTE: SW reviewed chart and spoke with nursing and attending physician. Pt is medically stable for discharge home today with HH services. SW met with pt at bedside to discuss discharge plan. Pt is aware and in agreement with plan. Pt states her son will be able to provide transportation home. Pt requests SW contact her son, and ask him to call her. Pt aware of having [facility]. SW faxed finalized discharge orders/summary to [facility] and confirmed info was received with Darrian in intake. SW left voice message for pt's son, Zak, to discuss discharge. Contact info for HH placed in pt's discharge summary. No additional SW needs identified at this time, but is available to assist should needs arise.
[2020-12-11 15:22] VITALS: BP 152/99
--- NOTE | 2020-12-11 20:47 | NUR ---
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
== END 2020-12-11 19:10 | disposition home health service (06) | DRG 391 ==
LOC: ER 12:24 → 3W 15:36 → EROBS 15:36 → 3W 18:23
PROVIDERS: Nurse Practitioner; ADMIT Internal Medicine; ATTEND Internal Medicine
DX: K59.03 Drug induced constipation (principal); N17.0 Acute kidney failure with tubular necrosis; E87.1 Hypo-osmolality and hyponatremia; K56.609 Unspecified intestinal obstruction, unspecified as to partial versus complete obstruction; G89.29 Other chronic pain; F41.9 Anxiety disorder, unspecified; I10 Essential (primary) hypertension; E03.9 Hypothyroidism, unspecified; K21.9 Gastro-esophageal reflux disease without esophagitis; E87.6 Hypokalemia; E83.42 Hypomagnesemia; G47.00 Insomnia, unspecified; F32.9 Major depressive disorder, single episode, unspecified; M54.5 Low back pain; G43.909 Migraine, unspecified, not intractable, without status migrainosus; M85.88 Other specified disorders of bone density and structure, other site; M47.816 Spondylosis without myelopathy or radiculopathy, lumbar region; S09.8XXA Other specified injuries of head, initial encounter; W18.39XA Other fall on same level, initial encounter; Z98.42 Cataract extraction status, left eye; Z98.41 Cataract extraction status, right eye; Z90.49 Acquired absence of other specified parts of digestive tract; Z90.710 Acquired absence of both cervix and uterus; Z79.899 Other long term (current) drug therapy; Z88.0 Allergy status to penicillin; Y93.89 Activity, other specified; Y92.89 Other specified places as the place of occurrence of the external cause; Y99.8 Other external cause status; Z87.891 Personal history of nicotine dependence; Z87.11 Personal history of peptic ulcer disease
CPT/HCPCS: 10879